=== PATIENT | female | born 1935 | race African-American/Black ===

== ENCOUNTER 2019-08-20 08:21 | Inpatient (IN) ==
[2019-08-20] MEDS ORDERED: SODIUM CHLORIDE 0.9% 1,000 ML IV STA (09:56)
[2019-08-20] MEDS ORDERED: ONDANSETRON 4 MG/2 ML VIAL IV ONE (09:56)
[2019-08-20 10:42] LABS: Bilirubin,Total 0.7 MG/DL (0.2-1.0); Calcium 9.4 MG/DL (8.5-10.1); Total Protein 7.5 G/DL (6.4-8.3)
[2019-08-20 10:44] LABS: Basophils # 0.1 10*3/uL (0.0-0.2); Basophils % 1.1 % (0.0-0.8); Eosinophils % 0.2 % (0.00-10.9); Hematocrit 35.3 VOL% (35.7-47.0); Hemoglobin 11.1 GM/DL (12.0-16.0); Immature Granulocytes % 0.6 %; Immature Granulocytes Absolute 0.05 #; Lymphocytes # 0.3 10*3/uL (1.4-4.0); Lymphocytes % 3.5 % (21.3-54.2); Mean Corpuscular HGB Conc 31.4 GM/DL (32-36); Mean Corpuscular Volume 99.2 FL (87-102); Monocytes % 2.9 % (1.7-12.7); NRBC # 0.03 10*3/uL; Neutrophils % 91.7 % (38.7-73.9); Platelet Count 238 T/CUMM (130-400); Red Blood Count 3.56 MC/CUMM (3.8-5.5); Red Cell Distribution Width 15.7 % (9.3-17.3); White Blood Count 8.3 T/CUMM (4-12)
[2019-08-20 11:10] LABS: Albumin 2.2 G/DL (3.4-5.0)
[2019-08-20 11:41] LABS: Anisocytosis Slight; Band Neutrophils 32 % (0-10); Eosinophils 1 % (0-10); Lymphocytes 3 % (20-55); Macrocytosis 1+; Platelet Estimate Normal; Segmented Neutrophils 61 % (50-85); Total Cells Counted 100
[2019-08-20 11:42] LABS: Poikilocytosis Slight
[2019-08-20 11:50] LABS: Ferritin 1594.1 ng/ml (8-252)
[2019-08-20] MEDS ORDERED: GENTAMICIN 80 MG/2 ML VIAL IM STA (11:52)
[2019-08-20] MEDS ORDERED: VANCOMYCIN INJ 1,000 MG in SODIUM CHLORIDE 0.9% 250 ML IV STA (11:52)
[2019-08-20] MEDS ORDERED: GENTAMICIN INJ 80 MG in SODIUM CHLORIDE 0.9% 100 ML IV STA (11:57)
[2019-08-20] MEDS ORDERED: GENTAMICIN 80 MG/2 ML VIAL ONE (12:00)
[2019-08-20] MEDS ORDERED: KETOROLAC 15 MG/1 ML VIAL IV PRN (12:53)
[2019-08-20] MEDS ORDERED: MORPHINE 4 MG/1 ML VIAL IV PRN ×2 (12:53)
[2019-08-20] MEDS ORDERED: ACETAMINOPHEN 325 MG TABLET PO PRN (12:53)
[2019-08-20] MEDS ORDERED: LEVOFLOXACIN INJ 750 MG in PREMIX 1 EACH IV ONE (13:00)
[2019-08-20] MEDS: metroNIDAZOLE INJ 500 MG in PREMIX 1 EACH IV SCH ×2 (13:29→23:05)
[2019-08-20] MEDS ORDERED: LEVOFLOXACIN INJ 150 ML IV ONE (13:36)
[2019-08-20] MEDS: LACTATED RINGERS 1,000 ML IV SCH (15:47)
[2019-08-20] MEDS: HEPARIN 5,000 UNIT/1 ML VIAL SUBCUT SCH ×2 (16:23→23:09)
[2019-08-20] MEDS ORDERED: amLODIPine 10 MG TABLET PO SCH (21:00)
[2019-08-20] MEDS: SIMVASTATIN 40 MG TABLET PO SCH (23:07)
[2019-08-20] MEDS: PANTOPRAZOLE 40 MG TABLET PO SCH (23:07)
[2019-08-20] MEDS: FERROUS SULFATE 325 MG TABLET PO SCH (23:07)
[2019-08-20] MEDS: carvediloL 12.5 MG TABLET PO SCH (23:07)
[2019-08-21] MEDS: metroNIDAZOLE INJ 500 MG in PREMIX 1 EACH IV SCH ×3 (05:20→21:00)
[2019-08-21 05:41] LABS: Basophils % 0.6 % (0.0-0.8); Eosinophils % 0.4 % (0.00-10.9); Hematocrit 30.5 VOL% (35.7-47.0); Hemoglobin 9.5 GM/DL (12.0-16.0); Immature Granulocytes % 0.6 %; Immature Granulocytes Absolute 0.04 #; Lymphocytes # 0.3 10*3/uL (1.4-4.0); Mean Corpuscular HGB Conc 31.1 GM/DL (32-36); Mean Platelet Volume 11.8 FL (9.6-12.0); Monocytes % 4.8 % (1.7-12.7); NRBC # 0.02 10*3/uL; Neutrophils % 89.6 % (38.7-73.9); Platelet Count 197 T/CUMM (130-400); Red Blood Count 3.08 MC/CUMM (3.8-5.5); Red Cell Distribution Width 15.7 % (9.3-17.3); White Blood Count 7.1 T/CUMM (4-12)
[2019-08-21 06:03] LABS: Band Neutrophils 2 % (0-10); Hypochromasia 1+; Lymphocytes 4 % (20-55); Platelet Estimate Adequate; Segmented Neutrophils 89 % (50-85); Total Cells Counted 100
[2019-08-21 06:05] LABS: Albumin 1.7 G/DL (3.4-5.0); Bilirubin,Total 1.2 MG/DL (0.2-1.0); Calcium 8.6 MG/DL (8.5-10.1); Osmolality,Calculated 299.8 MOS/KG (273-304)
[2019-08-21 06:48] LABS: Ferritin 1387.1 ng/ml (8-252)
[2019-08-21] MEDS ORDERED: PANTOPRAZOLE 40 MG VIAL IV SCH (09:00)
[2019-08-21] MEDS: HEPARIN 5,000 UNIT/1 ML VIAL SUBCUT SCH (09:56)
[2019-08-21] MEDS: PANTOPRAZOLE 40 MG TABLET PO SCH ×2 (09:56→21:00)
[2019-08-21] MEDS: predniSONE 10 MG TABLET PO SCH (09:56)
[2019-08-21] MEDS: FERROUS SULFATE 325 MG TABLET PO SCH ×2 (09:56→17:15)
[2019-08-21] MEDS: LACTATED RINGERS 1,000 ML IV SCH ×2 (09:56→17:52)
[2019-08-21] MEDS: carvediloL 12.5 MG TABLET PO SCH ×2 (09:56→17:15)
[2019-08-21] MEDS: allopurinoL 100 MG TABLET PO SCH (09:56)
[2019-08-21] MEDS: HEPARIN DRIP 25,000 UNITS/500 ML PREMIX IV SCH (16:10)
[2019-08-21] MEDS: SIMVASTATIN 40 MG TABLET PO SCH (21:00)
[2019-08-21] MEDS: ASCORBIC ACID 500 MG TABLET PO SCH (21:00)
[2019-08-22] MEDS: metroNIDAZOLE INJ 500 MG in PREMIX 1 EACH IV SCH ×3 (05:56→22:04)
[2019-08-22 08:53] LABS: Ferritin 1398.7 ng/ml (8-252)
[2019-08-22] MEDS: PANTOPRAZOLE 40 MG TABLET PO SCH ×2 (09:19→21:04)
[2019-08-22] MEDS: FERROUS SULFATE 325 MG TABLET PO SCH ×2 (09:19→17:48)
[2019-08-22] MEDS: carvediloL 12.5 MG TABLET PO SCH ×2 (09:19→17:48)
[2019-08-22] MEDS: ASCORBIC ACID 500 MG TABLET PO SCH ×2 (09:19→21:04)
[2019-08-22] MEDS: allopurinoL 100 MG TABLET PO SCH (09:19)
[2019-08-22] MEDS: LEVOFLOXACIN INJ 500 MG in PREMIX 1 EACH IV SCH (09:19)
[2019-08-22] MEDS: predniSONE 10 MG TABLET PO SCH (09:19)
[2019-08-22 16:16] LABS: Partial Thromboplastin Time 39.5 SECS (23.9-33.8)
[2019-08-22] MEDS ORDERED: EPOETIN ALFA-EPBX 2,000 UNIT/ML VIAL IV PRN (16:32)
[2019-08-22 16:48] LABS: Basophils % 0.2 % (0.0-0.8); Eosinophils % 0.2 % (0.00-10.9); Hematocrit 28.3 VOL% (35.7-47.0); Hemoglobin 8.8 GM/DL (12.0-16.0); Immature Granulocytes % 1.5 %; Immature Granulocytes Absolute 0.13 #; Lymphocytes # 0.3 10*3/uL (1.4-4.0); Lymphocytes % 3.9 % (21.3-54.2); Mean Corpuscular HGB Conc 31.1 GM/DL (32-36); Mean Corpuscular Volume 99.6 FL (87-102); Mean Platelet Volume 11.9 FL (9.6-12.0); Monocytes % 3.3 % (1.7-12.7); NRBC # 0.02 10*3/uL; Neutrophils % 90.9 % (38.7-73.9); Platelet Count 203 T/CUMM (130-400); Red Blood Count 2.84 MC/CUMM (3.8-5.5); Red Cell Distribution Width 15.8 % (9.3-17.3); White Blood Count 8.5 T/CUMM (4-12)
[2019-08-22] MEDS: HEPARIN DRIP 25,000 UNITS/500 ML PREMIX IV SCH ×2 (17:47→23:13)
[2019-08-22 18:10] LABS: Band Neutrophils 3 % (0-10); Lymphocytes 4 % (20-55); Segmented Neutrophils 92 % (50-85); Total Cells Counted 100
[2019-08-22 18:11] LABS: Platelet Estimate Adequate
[2019-08-22] MEDS: SIMVASTATIN 40 MG TABLET PO SCH (21:04)
[2019-08-22] MEDS ORDERED: HEPARIN 5,000 UNIT/1 ML VIAL IV PRN (23:17)
[2019-08-23 03:33] LABS: Ferritin 1149.5 ng/ml (8-252)
[2019-08-23 03:35] LABS: Risk Ratio 2.37; VLDL CHOLESTEROL 11.8 MG/DL
[2019-08-23] MEDS: metroNIDAZOLE INJ 500 MG in PREMIX 1 EACH IV SCH ×3 (05:20→20:50)
[2019-08-23] MEDS: PANTOPRAZOLE 40 MG TABLET PO SCH ×2 (09:03→20:49)
[2019-08-23] MEDS: allopurinoL 100 MG TABLET PO SCH (09:03)
[2019-08-23] MEDS: ASCORBIC ACID 500 MG TABLET PO SCH ×2 (09:03→20:50)
[2019-08-23] MEDS: FERROUS SULFATE 325 MG TABLET PO SCH ×2 (09:03→17:58)
[2019-08-23] MEDS: predniSONE 10 MG TABLET PO SCH (09:03)
[2019-08-23] MEDS: carvediloL 12.5 MG TABLET PO SCH ×2 (09:03→17:58)
[2019-08-23] MEDS: ASPIRIN EC 81 MG TABLET PO SCH (12:54)
[2019-08-23] MEDS: SIMVASTATIN 40 MG TABLET PO SCH (20:49)
[2019-08-23] MEDS: HEPARIN DRIP 25,000 UNITS/500 ML PREMIX IV SCH (22:01)
[2019-08-24] MEDS: metroNIDAZOLE INJ 500 MG in PREMIX 1 EACH IV SCH ×3 (05:03→20:57)
[2019-08-24] MEDS: predniSONE 10 MG TABLET PO SCH (13:25)
[2019-08-24] MEDS: ASCORBIC ACID 500 MG TABLET PO SCH ×2 (13:25→20:57)
[2019-08-24] MEDS: carvediloL 12.5 MG TABLET PO SCH ×2 (13:26→17:41)
[2019-08-24] MEDS: LEVOFLOXACIN INJ 500 MG in PREMIX 1 EACH IV SCH (13:26)
[2019-08-24] MEDS: PANTOPRAZOLE 40 MG TABLET PO SCH ×2 (13:26→20:57)
[2019-08-24] MEDS: FERROUS SULFATE 325 MG TABLET PO SCH ×2 (13:26→17:41)
[2019-08-24] MEDS: allopurinoL 100 MG TABLET PO SCH (13:26)
[2019-08-24] MEDS: ASPIRIN EC 81 MG TABLET PO SCH (13:26)
[2019-08-24] MEDS: SIMVASTATIN 40 MG TABLET PO SCH (20:57)
[2019-08-24] MEDS: HEPARIN DRIP 25,000 UNITS/500 ML PREMIX IV SCH (21:49)
[2019-08-25] MEDS: metroNIDAZOLE INJ 500 MG in PREMIX 1 EACH IV SCH ×3 (05:20→20:44)
[2019-08-25 07:24] LABS: Ferritin 1012.3 ng/ml (8-252)
[2019-08-25 08:14] LABS: Basophils % 0.3 % (0.0-0.8); Eosinophils % 0.1 % (0.00-10.9); Hematocrit 28.4 VOL% (35.7-47.0); Hemoglobin 8.7 GM/DL (12.0-16.0); Immature Granulocytes % 6.3 %; Immature Granulocytes Absolute 0.86 #; Lymphocytes # 1.1 10*3/uL (1.4-4.0); Lymphocytes % 8.3 % (21.3-54.2); Mean Corpuscular HGB Conc 30.6 GM/DL (32-36); Mean Platelet Volume 11.7 FL (9.6-12.0); Monocytes % 3.9 % (1.7-12.7); Neutrophils % 81.1 % (38.7-73.9); Platelet Count 226 T/CUMM (130-400); Red Blood Count 2.84 MC/CUMM (3.8-5.5); Red Cell Distribution Width 15.5 % (9.3-17.3); White Blood Count 13.6 T/CUMM (4-12)
[2019-08-25 08:54] LABS: Calcium 8.5 MG/DL (8.5-10.1); Osmolality,Calculated 276.4 MOS/KG (273-304)
[2019-08-25] MEDS: predniSONE 10 MG TABLET PO SCH (09:00)
[2019-08-25] MEDS: allopurinoL 100 MG TABLET PO SCH (09:00)
[2019-08-25] MEDS: ASCORBIC ACID 500 MG TABLET PO SCH ×2 (09:00→20:45)
[2019-08-25] MEDS: ASPIRIN EC 81 MG TABLET PO SCH (09:00)
[2019-08-25] MEDS: carvediloL 12.5 MG TABLET PO SCH ×2 (09:00→18:08)
[2019-08-25] MEDS: PANTOPRAZOLE 40 MG TABLET PO SCH ×2 (09:00→20:45)
[2019-08-25] MEDS: FERROUS SULFATE 325 MG TABLET PO SCH ×2 (09:01→18:08)
[2019-08-25 13:28] LABS: Lymphocytes 10 % (20-55); Platelet Estimate Normal; Polychromasia Slight; Segmented Neutrophils 87 % (50-85); Total Cells Counted 100
[2019-08-25] MEDS: SIMVASTATIN 40 MG TABLET PO SCH (20:45)
[2019-08-26] MEDS: HEPARIN DRIP 25,000 UNITS/500 ML PREMIX IV SCH ×3 (00:32→21:32)
[2019-08-26] MEDS: metroNIDAZOLE INJ 500 MG in PREMIX 1 EACH IV SCH ×3 (05:02→21:29)
[2019-08-26 07:36] LABS: Basophils % 0.4 % (0.0-0.8); Eosinophils % 0.3 % (0.00-10.9); Hematocrit 30.5 VOL% (35.7-47.0); Hemoglobin 9.6 GM/DL (12.0-16.0); Immature Granulocytes % 6.8 %; Immature Granulocytes Absolute 0.75 #; Lymphocytes % 9.2 % (21.3-54.2); Mean Corpuscular HGB Conc 31.5 GM/DL (32-36); Mean Platelet Volume 11.2 FL (9.6-12.0); Monocytes % 4.8 % (1.7-12.7); NRBC # 0.02 10*3/uL; Neutrophils % 78.5 % (38.7-73.9); Platelet Count 235 T/CUMM (130-400); Red Blood Count 3.08 MC/CUMM (3.8-5.5); Red Cell Distribution Width 15.6 % (9.3-17.3)
[2019-08-26 08:15] LABS: Osmolality,Calculated 281.2 MOS/KG (273-304)
[2019-08-26 08:17] LABS: Band Neutrophils 1 % (0-10); Lymphocytes 10 % (20-55); Platelet Estimate Adequate; Segmented Neutrophils 85 % (50-85); Total Cells Counted 100
[2019-08-26 08:18] LABS: Hypochromasia 1+; Microcytosis Slight; Ovalocytes Slight
[2019-08-26] MEDS: predniSONE 10 MG TABLET PO SCH (09:24)
[2019-08-26] MEDS: FERROUS SULFATE 325 MG TABLET PO SCH ×2 (09:24→16:39)
[2019-08-26] MEDS: carvediloL 12.5 MG TABLET PO SCH ×2 (09:24→16:39)
[2019-08-26] MEDS: ASPIRIN EC 81 MG TABLET PO SCH (09:24)
[2019-08-26] MEDS: ASCORBIC ACID 500 MG TABLET PO SCH ×2 (09:25→21:25)
[2019-08-26] MEDS: allopurinoL 100 MG TABLET PO SCH (09:25)
[2019-08-26] MEDS: PANTOPRAZOLE 40 MG TABLET PO SCH ×2 (09:25→21:25)
[2019-08-26] MEDS: LEVOFLOXACIN INJ 500 MG in PREMIX 1 EACH IV SCH (09:29)
[2019-08-26] MEDS: SIMVASTATIN 40 MG TABLET PO SCH (21:25)
[2019-08-27 00:23] LABS: Basophils % 0.2 % (0.0-0.8); Eosinophils % 0.1 % (0.00-10.9); Hemoglobin 9.8 GM/DL (12.0-16.0); Immature Granulocytes % 6.1 %; Immature Granulocytes Absolute 0.79 #; Lymphocytes % 7.4 % (21.3-54.2); Mean Corpuscular HGB Conc 31.6 GM/DL (32-36); Mean Corpuscular Volume 97.2 FL (87-102); Mean Platelet Volume 10.6 FL (9.6-12.0); Monocytes % 4.8 % (1.7-12.7); NRBC # 0.03 10*3/uL; Neutrophils % 81.4 % (38.7-73.9); Platelet Count 239 T/CUMM (130-400); Red Blood Count 3.19 MC/CUMM (3.8-5.5); Red Cell Distribution Width 15.8 % (9.3-17.3)
[2019-08-27 00:44] LABS: Albumin 1.8 G/DL (3.4-5.0); Bilirubin,Total 0.7 MG/DL (0.2-1.0); Calcium 9.2 MG/DL (8.5-10.1); Osmolality,Calculated 281.5 MOS/KG (273-304); Total Protein 6.1 G/DL (6.4-8.3)
[2019-08-27 00:57] LABS: Band Neutrophils 2 % (0-10); Lymphocytes 8 % (20-55); Segmented Neutrophils 81 % (50-85); Total Cells Counted 100
[2019-08-27 00:58] LABS: Acanthocytes Few; Anisocytosis 1+; Platelet Estimate Normal
[2019-08-27] MEDS: metroNIDAZOLE INJ 500 MG in PREMIX 1 EACH IV SCH ×3 (05:35→21:19)
[2019-08-27 07:59] LABS: Basophils % 0.2 % (0.0-0.8); Eosinophils % 0.2 % (0.00-10.9); Hematocrit 30.4 VOL% (35.7-47.0); Hemoglobin 9.6 GM/DL (12.0-16.0); Immature Granulocytes % 7.3 %; Immature Granulocytes Absolute 0.91 #; Mean Corpuscular HGB Conc 31.6 GM/DL (32-36); Mean Corpuscular Volume 97.4 FL (87-102); Mean Platelet Volume 11.2 FL (9.6-12.0); Monocytes % 4.7 % (1.7-12.7); NRBC # 0.03 10*3/uL; Neutrophils % 79.6 % (38.7-73.9); Platelet Count 258 T/CUMM (130-400); Red Blood Count 3.12 MC/CUMM (3.8-5.5); White Blood Count 12.4 T/CUMM (4-12)
[2019-08-27 08:19] LABS: Calcium 8.5 MG/DL (8.5-10.1); Osmolality,Calculated 283.2 MOS/KG (273-304)
[2019-08-27 08:26] LABS: Eosinophils 2 % (0-10); Hypochromasia 1+; Lymphocytes 9 % (20-55); Microcytosis Slight; Platelet Estimate Adequate; Segmented Neutrophils 86 % (50-85); Total Cells Counted 100
[2019-08-27] MEDS: carvediloL 12.5 MG TABLET PO SCH ×2 (09:46→16:17)
[2019-08-27] MEDS: ASCORBIC ACID 500 MG TABLET PO SCH ×2 (09:46→21:12)
[2019-08-27] MEDS: PANTOPRAZOLE 40 MG TABLET PO SCH ×2 (09:46→21:12)
[2019-08-27] MEDS: FERROUS SULFATE 325 MG TABLET PO SCH ×2 (09:46→16:17)
[2019-08-27] MEDS: allopurinoL 100 MG TABLET PO SCH (16:17)
[2019-08-27] MEDS: predniSONE 10 MG TABLET PO SCH (16:17)
[2019-08-27] MEDS: ASPIRIN EC 81 MG TABLET PO SCH (16:17)
[2019-08-27] MEDS: SIMVASTATIN 40 MG TABLET PO SCH (21:12)
[2019-08-28] MEDS: metroNIDAZOLE INJ 500 MG in PREMIX 1 EACH IV SCH ×3 (04:37→21:00)
[2019-08-28] MEDS ORDERED: DIAZEPAM 5 MG TABLET PO ONE (08:59)
[2019-08-28] MEDS ORDERED: MIDAZOLAM 2 MG/2 ML VIAL IV ONE (09:00)
[2019-08-28] MEDS ORDERED: fentaNYL 100 MCG/2 ML VIAL IV ONE (09:00)
[2019-08-28] MEDS ORDERED: MIDAZOLAM 2 MG/2 ML VIAL ONE (09:24)
[2019-08-28] MEDS ORDERED: fentaNYL 100 MCG/2 ML VIAL ONE (09:24)
[2019-08-28] MEDS: ONDANSETRON 4 MG/2 ML VIAL IV PRN ×2 (10:38→16:19)
[2019-08-28] MEDS ORDERED: ONDANSETRON 4 MG/2 ML VIAL ONE (10:38)
[2019-08-28] MEDS: allopurinoL 100 MG TABLET PO SCH (12:20)
[2019-08-28] MEDS: carvediloL 12.5 MG TABLET PO SCH ×2 (12:20→16:19)
[2019-08-28] MEDS: PANTOPRAZOLE 40 MG TABLET PO SCH ×2 (12:21→20:59)
[2019-08-28] MEDS: FERROUS SULFATE 325 MG TABLET PO SCH ×2 (12:21→16:19)
[2019-08-28] MEDS: ASPIRIN EC 81 MG TABLET PO SCH (12:21)
[2019-08-28] MEDS: predniSONE 10 MG TABLET PO SCH (12:21)
[2019-08-28] MEDS: ASCORBIC ACID 500 MG TABLET PO SCH ×2 (12:21→20:59)
[2019-08-28] MEDS: LEVOFLOXACIN INJ 500 MG in PREMIX 1 EACH IV SCH (12:21)
[2019-08-28] MEDS: SODIUM CHLORIDE 0.45% 1,000 ML IV SCH (20:57)
[2019-08-28] MEDS: SIMVASTATIN 40 MG TABLET PO SCH (20:59)
[2019-08-29] MEDS: metroNIDAZOLE INJ 500 MG in PREMIX 1 EACH IV SCH ×3 (05:48→20:51)
[2019-08-29 06:33] LABS: Basophils % 0.3 % (0.0-0.8); Eosinophils % 0.1 % (0.00-10.9); Hematocrit 29.3 VOL% (35.7-47.0); Hemoglobin 9.2 GM/DL (12.0-16.0); Immature Granulocytes % 2.9 %; Immature Granulocytes Absolute 0.46 #; Lymphocytes # 0.9 10*3/uL (1.4-4.0); Lymphocytes % 5.7 % (21.3-54.2); Mean Corpuscular HGB Conc 31.4 GM/DL (32-36); Mean Platelet Volume 11.9 FL (9.6-12.0); Monocytes % 5.5 % (1.7-12.7); Neutrophils % 85.5 % (38.7-73.9); Platelet Count 190 T/CUMM (130-400); Red Blood Count 2.96 MC/CUMM (3.8-5.5); Red Cell Distribution Width 16.2 % (9.3-17.3); White Blood Count 15.9 T/CUMM (4-12)
[2019-08-29 06:51] LABS: Calcium 8.8 MG/DL (8.5-10.1); Osmolality,Calculated 281.1 MOS/KG (273-304)
[2019-08-29] MEDS: ASCORBIC ACID 500 MG TABLET PO SCH ×2 (08:43→20:51)
[2019-08-29] MEDS: ASPIRIN EC 81 MG TABLET PO SCH (08:46)
[2019-08-29] MEDS: predniSONE 10 MG TABLET PO SCH (08:46)
[2019-08-29] MEDS: carvediloL 12.5 MG TABLET PO SCH ×2 (08:47→19:05)
[2019-08-29] MEDS: FERROUS SULFATE 325 MG TABLET PO SCH ×2 (08:47→19:05)
[2019-08-29] MEDS: PANTOPRAZOLE 40 MG TABLET PO SCH ×2 (08:47→20:51)
[2019-08-29] MEDS: allopurinoL 100 MG TABLET PO SCH (08:47)
[2019-08-29] MEDS ORDERED: ENOXAPARIN 100 MG/ML SYRINGE SUBCUT SCH (11:00)
[2019-08-29] MEDS ORDERED: HEPARIN DRIP 25,000 UNITS/500 ML PREMIX IV SCH (11:00)
[2019-08-29] MEDS: SIMVASTATIN 40 MG TABLET PO SCH (20:51)
[2019-08-29] MEDS: SODIUM CHLORIDE 0.45% 1,000 ML IV SCH (21:17)
[2019-08-30] MEDS: metroNIDAZOLE INJ 500 MG in PREMIX 1 EACH IV SCH ×2 (05:05→12:44)
[2019-08-30 06:01] LABS: Basophils % 0.2 % (0.0-0.8); Eosinophils % 0.1 % (0.00-10.9); Hematocrit 25.9 VOL% (35.7-47.0); Hemoglobin 8.3 GM/DL (12.0-16.0); Immature Granulocytes % 2.9 %; Immature Granulocytes Absolute 0.37 #; Lymphocytes # 0.8 10*3/uL (1.4-4.0); Lymphocytes % 6.5 % (21.3-54.2); Mean Platelet Volume 11.6 FL (9.6-12.0); Monocytes % 5.3 % (1.7-12.7); Platelet Count 229 T/CUMM (130-400); Red Blood Count 2.67 MC/CUMM (3.8-5.5); Red Cell Distribution Width 15.9 % (9.3-17.3); White Blood Count 12.9 T/CUMM (4-12)
[2019-08-30 06:16] LABS: Calcium 8.4 MG/DL (8.5-10.1)
[2019-08-30] MEDS ORDERED: POTASSIUM CHLORIDE 20 MEQ TABLET PO ONE (09:00)
[2019-08-30] MEDS ORDERED: APIXABAN 5 MG TABLET PO SCH (09:30)
[2019-08-30] MEDS: allopurinoL 100 MG TABLET PO SCH (09:43)
[2019-08-30] MEDS: FERROUS SULFATE 325 MG TABLET PO SCH (09:43)
[2019-08-30] MEDS: carvediloL 12.5 MG TABLET PO SCH (09:43)
[2019-08-30] MEDS: predniSONE 10 MG TABLET PO SCH (09:43)
[2019-08-30] MEDS: ASCORBIC ACID 500 MG TABLET PO SCH (09:43)
[2019-08-30] MEDS: PANTOPRAZOLE 40 MG TABLET PO SCH (09:43)
[2019-08-30] MEDS: ASPIRIN EC 81 MG TABLET PO SCH (09:43)
[2019-08-30] MEDS: SODIUM CHLORIDE 0.45% 1,000 ML IV SCH (10:32)
[2019-08-30 11:52] VITALS: BP 111/57
== END 2019-08-30 15:20 | disposition home health service (06) | DRG 371 ==
LOC: N.ED 08:21 → SUPCPDRO 15:19 → SUATTDRO 15:19 → N.EDINP 15:19 → N.2W 21:29 → N.TELEN 08-22 20:07
PROVIDERS: ADMIT Internal Medicine; ATTEND Internal Medicine Geriatric Medicine

== ENCOUNTER 2019-08-31 17:05 | Inpatient (IN) ==
[2019-08-31] MEDS ORDERED: SODIUM CHLORIDE 0.9% 500 ML IV STA (17:29)
[2019-08-31 18:28] LABS: Basophils % 0.2 % (0.0-0.8); Eosinophils % 0.1 % (0.00-10.9); Hematocrit 28.9 VOL% (35.7-47.0); Hemoglobin 8.9 GM/DL (12.0-16.0); Immature Granulocytes % 4.5 %; Immature Granulocytes Absolute 0.64 #; Lymphocytes # 0.9 10*3/uL (1.4-4.0); Lymphocytes % 6.3 % (21.3-54.2); Mean Corpuscular HGB Conc 30.8 GM/DL (32-36); Mean Corpuscular Volume 99.3 FL (87-102); Mean Platelet Volume 11.2 FL (9.6-12.0); Monocytes % 8.7 % (1.7-12.7); Neutrophils % 80.2 % (38.7-73.9); Platelet Count 305 T/CUMM (130-400); Red Blood Count 2.91 MC/CUMM (3.8-5.5); Red Cell Distribution Width 16.3 % (9.3-17.3); White Blood Count 14.1 T/CUMM (4-12)
[2019-08-31] MEDS ORDERED: DILTIAZEM 50 MG/10 ML VIAL IV STA (18:29)
[2019-08-31 18:44] LABS: Alanine Aminotransferase 12 U/L (13-56); Albumin 2.2 G/DL (3.4-5.0); Alkaline Phosphatase 66 U/L (45-117); Aspartate Amino Transferase 18 U/L (0-37); Blood Urea Nitrogen 14 MG/DL (7-18); Calcium 8.5 MG/DL (8.5-10.1); Estimated Glom Filtration Rate 33 ML/MIN; Glucose 145 MG/DL (74-106); Osmolality,Calculated 271.2 MOS/KG (273-304)
[2019-08-31 18:45] LABS: Troponin I 0.582 NG/ML (0.00-0.045)
[2019-08-31 19:04] LABS: Lymphocytes 6 % (20-55); Segmented Neutrophils 87 % (50-85); Total Cells Counted 100
[2019-08-31 19:05] LABS: Anisocytosis 2+; Hypochromasia 1+; Microcytosis 2+; Platelet Estimate Normal; Stomatocytes Slight
[2019-08-31] MEDS ORDERED: LEVOFLOXACIN INJ 500 MG in PREMIX 1 EACH IV STA (19:06)
[2019-08-31] MEDS ORDERED: ASPIRIN 325 MG TABLET PO STA (19:06)
[2019-08-31 19:14] LABS: INR 1.2
[2019-08-31] MEDS ORDERED: MORPHINE 4 MG/1 ML VIAL IV ONE (19:36)
[2019-08-31] MEDS ORDERED: MORPHINE 4 MG/1 ML VIAL IV PRN (20:09)
[2019-08-31] MEDS ORDERED: GLUCAGON 1 MG VIAL IM PRN (20:09)
[2019-08-31] MEDS ORDERED: DEXTROSE 50% 25 GM/50 ML VIAL IV PRN (20:09)
[2019-08-31] MEDS ORDERED: ONDANSETRON 4 MG/2 ML VIAL IV PRN (20:09)
[2019-08-31] MEDS ORDERED: ENOXAPARIN 40 MG/0.4 ML SYRINGE SUBCUT SCH (20:30)
[2019-08-31] MEDS ORDERED: SIMVASTATIN 40 MG TABLET PO SCH (21:00)
[2019-08-31] MEDS ORDERED: cefTRIAXone 2,000 MG in SYRINGE 1 EACH IV SCH (21:00)
[2019-08-31] MEDS: FERROUS SULFATE 325 MG TABLET PO SCH (22:35)
[2019-08-31] MEDS: APIXABAN 5 MG TABLET PO SCH (22:35)
[2019-08-31] MEDS: carvediloL 12.5 MG TABLET PO SCH (22:46)
[2019-09-01 07:37] LABS: Basophils % 0.4 % (0.0-0.8); Eosinophils % 0.2 % (0.00-10.9); Hemoglobin 7.4 GM/DL (12.0-16.0); Immature Granulocytes % 4.6 %; Lymphocytes # 0.8 10*3/uL (1.4-4.0); Lymphocytes % 7.2 % (21.3-54.2); Mean Corpuscular HGB Conc 30.8 GM/DL (32-36); Mean Corpuscular Volume 97.6 FL (87-102); Mean Platelet Volume 11.2 FL (9.6-12.0); Monocytes % 9.2 % (1.7-12.7); Neutrophils % 78.4 % (38.7-73.9); Platelet Count 230 T/CUMM (130-400); Red Blood Count 2.46 MC/CUMM (3.8-5.5); Red Cell Distribution Width 15.9 % (9.3-17.3); White Blood Count 10.8 T/CUMM (4-12)
[2019-09-01 08:12] LABS: Hypochromasia 1+; Microcytosis Slight
[2019-09-01] MEDS ORDERED: PANTOPRAZOLE 40 MG TABLET PO SCH (09:00)
[2019-09-01] MEDS ORDERED: predniSONE 10 MG TABLET PO SCH (09:00)
[2019-09-01] MEDS ORDERED: ASPIRIN EC 81 MG TABLET PO SCH (09:00)
[2019-09-01] MEDS ORDERED: GLUCAGON 1 MG VIAL IM PRN (09:10)
[2019-09-01] MEDS ORDERED: DEXTROSE 50% 25 GM/50 ML VIAL IV PRN (09:10)
[2019-09-01] MEDS: FERROUS SULFATE 325 MG TABLET PO SCH (09:21)
[2019-09-01] MEDS: APIXABAN 5 MG TABLET PO SCH (09:22)
[2019-09-01] MEDS: carvediloL 12.5 MG TABLET PO SCH (09:22)
[2019-09-01] MEDS ORDERED: metroNIDAZOLE INJ 750 MG in PREMIX 1 EACH IV SCH (10:00)
[2019-09-01] MEDS ORDERED: SODIUM CHLORIDE 0.9% 1,000 ML IV SCH ×2 (10:00)
[2019-09-01] MEDS ORDERED: POTASSIUM CHLORIDE 20 MEQ TABLET PO PRN (11:42)
[2019-09-01] MEDS ORDERED: MAGNESIUM SULF RIDER 4 GM in PREMIX 1 EACH IV PRN (11:42)
[2019-09-01] MEDS ORDERED: MAGNESIUM SULF RIDER 2 GM in PREMIX 1 EACH IV PRN (11:42)
[2019-09-01 13:07] VITALS: BP 110/50
== END 2019-09-01 15:40 | disposition home or self-care (01) | DRG 308 ==
LOC: EDBD → EDUNIT# → N.ED 17:05 → N.EDINP 20:09 → N.TELEN 20:45
PROVIDERS: ADMIT Family Medicine; ATTEND Family Medicine

== ENCOUNTER 2019-09-12 11:23 | Inpatient (IN) ==
[2019-09-12 12:47] LABS: Basophils % 0.2 % (0.0-0.8); Eosinophils # 0.1 10*3/uL (0.0-0.87); Eosinophils % 0.4 % (0.00-10.9); Hematocrit 21.2 VOL% (35.7-47.0); Immature Granulocytes % 0.9 %; Immature Granulocytes Absolute 0.13 #; Lymphocytes # 1.6 10*3/uL (1.4-4.0); Lymphocytes % 11.6 % (21.3-54.2); Mean Corpuscular HGB Conc 30.2 GM/DL (32-36); Mean Platelet Volume 11.3 FL (9.6-12.0); Monocytes % 7.5 % (1.7-12.7); Neutrophils % 79.4 % (38.7-73.9); Platelet Count 228 T/CUMM (130-400); Red Cell Distribution Width 16.3 % (9.3-17.3)
[2019-09-12 12:50] LABS: Hemoglobin 6.4 GM/DL (12.0-16.0)
[2019-09-12 13:09] LABS: Urine Color Yellow (Yellow)
[2019-09-12 13:10] LABS: Apearance,Urine Clear (Clear)
[2019-09-12 13:11] LABS: Glucose,Urine (UA) Negative (Negative); Protein,Urine 2+ MG/DL; Urine Specific Gravity 1.005 (1.001-1.035)
[2019-09-12 13:12] LABS: Bilirubin,Urine Negative (Negative); Blood, Urine Negative (Negative); Ketones,Urine Negative (Negative); Nitrite,Urine Negative (Negative); RBC,Urine 0-3 /HPF (0-4); Squamous Epithelial Cell,Urine Few /HPF (0-10); Urine Urobilinogen < 2.0 EU/DL (0.2-1.0); WBC,Urine 0-5 /HPF (0-6)
[2019-09-12 13:13] LABS: Bacteria,Urine None Seen /HPF (Few)
[2019-09-12 13:13] LABS: Alanine Aminotransferase 25 U/L (13-56); Albumin 2.3 G/DL (3.4-5.0); Alkaline Phosphatase 89 U/L (45-117); Aspartate Amino Transferase 50 U/L (0-37); Blood Urea Nitrogen 10 MG/DL (7-18); Calcium 8.5 MG/DL (8.5-10.1); Estimated Glom Filtration Rate 45 ML/MIN; Glucose 149 MG/DL (74-106); Osmolality,Calculated 282.3 MOS/KG (273-304); Total Protein 6.2 G/DL (6.4-8.3)
[2019-09-12 13:14] LABS: Troponin I 0.109 NG/ML (0.00-0.045)
[2019-09-12] MEDS ORDERED: cefTRIAXone 1,000 MG in SODIUM CHLORIDE 0.9% 100 ML IV STA (14:07)
[2019-09-12] MEDS ORDERED: DOCUSATE SODIUM 100 MG CAPSULE PO PRN (14:35)
[2019-09-12] MEDS ORDERED: DEXTROSE 10% 250 ML BAG IV PRN (14:35)
[2019-09-12] MEDS ORDERED: ACETAMINOPHEN 325 MG TABLET PO PRN (14:35)
[2019-09-12] MEDS ORDERED: GLUCAGON 1 MG VIAL IM PRN (14:35)
[2019-09-12] MEDS ORDERED: ONDANSETRON 4 MG/2 ML VIAL IV PRN (14:35)
[2019-09-12] MEDS ORDERED: SODIUM CHLORIDE 0.9% 1,000 ML IV PRN ×2 (15:19→20:09)
[2019-09-12 15:25] LABS: Thyroid Stimulating Hormone 10.8 uIU/ml (0.358-3.74)
[2019-09-12 16:25] LABS: % Iron Saturation 98.3 % (18-50); Ferritin 1293.2 ng/ml (8-252)
[2019-09-12] MEDS: metroNIDAZOLE INJ 750 MG in PREMIX 1 EACH IV SCH (17:57)
[2019-09-12] MEDS: SODIUM CHLORIDE 0.9% 1,000 ML IV SCH (17:57)
[2019-09-12] MEDS: POTASSIUM CHLORIDE 20 MEQ TABLET PO PRN ×3 (17:58→22:02)
[2019-09-13] MEDS: PANTOPRAZOLE 40 MG VIAL IV SCH ×3 (01:05→21:23)
[2019-09-13] MEDS: metroNIDAZOLE INJ 750 MG in PREMIX 1 EACH IV SCH ×3 (01:07→17:33)
[2019-09-13] MEDS: SODIUM CHLORIDE 0.9% 1,000 ML IV SCH ×2 (01:08→17:44)
[2019-09-13 02:50] LABS: Basophils % 0.3 % (0.0-0.8); Eosinophils # 0.1 10*3/uL (0.0-0.87); Eosinophils % 0.5 % (0.00-10.9); Hematocrit 26.4 VOL% (35.7-47.0); Immature Granulocytes % 1.4 %; Immature Granulocytes Absolute 0.14 #; Lymphocytes # 1.1 10*3/uL (1.4-4.0); Lymphocytes % 11.5 % (21.3-54.2); Mean Corpuscular HGB Conc 30.7 GM/DL (32-36); Mean Platelet Volume 11.6 FL (9.6-12.0); Monocytes % 8.9 % (1.7-12.7); Neutrophils % 77.4 % (38.7-73.9); Platelet Count 168 T/CUMM (130-400); Red Blood Count 2.75 MC/CUMM (3.8-5.5); Red Cell Distribution Width 17.2 % (9.3-17.3); White Blood Count 9.8 T/CUMM (4-12)
[2019-09-13 02:58] LABS: Calcium 8.3 MG/DL (8.5-10.1)
[2019-09-13 03:14] LABS: Hemoglobin 8.1 GM/DL (12.0-16.0)
[2019-09-13] MEDS: POTASSIUM CHLORIDE 20 MEQ TABLET PO PRN (05:45)
[2019-09-13] MEDS ORDERED: PANTOPRAZOLE 40 MG TABLET PO SCH (09:00)
[2019-09-13] MEDS: POLYETHYLENE GLYCOL POWDER 17 GM PACK PO SCH (12:28)
[2019-09-13] MEDS ORDERED: cefTRIAXone 1,000 MG VIAL ONE (14:16)
[2019-09-13] MEDS ORDERED: fentaNYL 100 MCG/2 ML VIAL ONE (15:48)
[2019-09-13] MEDS ORDERED: ONDANSETRON 4 MG/2 ML VIAL ONE (15:48)
[2019-09-13] MEDS ORDERED: SEVOFLURANE 1 UNIT/15 MINUTE INH ONE (15:48)
[2019-09-13] MEDS ORDERED: PHENYLEPHRINE DRIP 20 MG/250 ML PREMIX IV ONE (15:48)
[2019-09-13] MEDS ORDERED: GLYCOPYRROLATE 0.4 MG/2 ML VIAL ONE ×2 (15:48→15:49)
[2019-09-13] MEDS ORDERED: LIDOCAINE 2% 5 ML VIAL ONE (15:48)
[2019-09-13] MEDS ORDERED: SODIUM CHLORIDE 0.9% 1,000 ML IV ONE (15:49)
[2019-09-13] MEDS ORDERED: ETOMIDATE 40 MG/20 ML VIAL IV ONE (15:49)
[2019-09-13] MEDS ORDERED: SUCCINYLCHOLINE 200 MG/10 ML VIAL ONE (15:49)
[2019-09-13] MEDS ORDERED: NEOSTIGMINE 10 MG/10 ML VIAL ONE (15:49)
[2019-09-13] MEDS ORDERED: ROCURONIUM 100 MG/10 ML VIAL IV ONE (15:49)
[2019-09-13] MEDS ORDERED: PHENYLEPHRINE 1 MG/10 ML SYRINGE IV ONE (15:49)
[2019-09-13] MEDS: HYDROmorphone 2 MG/1 ML VIAL IV PRN ×2 (15:55→16:15)
[2019-09-13] MEDS ORDERED: ONDANSETRON 4 MG/2 ML VIAL IV PRN (15:56)
[2019-09-13 16:19] LABS: Hematocrit 26.3 VOL% (35.7-47.0); Hemoglobin 8.2 GM/DL (12.0-16.0)
[2019-09-13] MEDS: cefTRIAXone 1,000 MG in SYRINGE 1 EACH IV SCH (17:44)
[2019-09-13 23:36] LABS: Hematocrit 26.5 VOL% (35.7-47.0); Hemoglobin 8.1 GM/DL (12.0-16.0)
[2019-09-14] MEDS: metroNIDAZOLE INJ 750 MG in PREMIX 1 EACH IV SCH ×4 (00:11→23:32)
[2019-09-14] MEDS: MORPHINE 4 MG/1 ML VIAL IV PRN ×3 (00:11→12:07)
[2019-09-14 04:37] LABS: Basophils % 0.2 % (0.0-0.8); Eosinophils % 0.1 % (0.00-10.9); Hemoglobin 8.5 GM/DL (12.0-16.0); Immature Granulocytes Absolute 0.17 #; Lymphocytes # 1.1 10*3/uL (1.4-4.0); Lymphocytes % 6.7 % (21.3-54.2); Mean Corpuscular HGB Conc 30.4 GM/DL (32-36); Mean Corpuscular Volume 97.2 FL (87-102); Mean Platelet Volume 11.6 FL (9.6-12.0); Monocytes % 6.2 % (1.7-12.7); Neutrophils % 85.8 % (38.7-73.9); Platelet Count 160 T/CUMM (130-400); Red Blood Count 2.88 MC/CUMM (3.8-5.5); Red Cell Distribution Width 17.2 % (9.3-17.3); White Blood Count 16.4 T/CUMM (4-12)
[2019-09-14 04:54] LABS: Calcium 8.3 MG/DL (8.5-10.1); Osmolality,Calculated 283.4 MOS/KG (273-304)
[2019-09-14] MEDS: LEVOTHYROXINE 75 MCG TABLET PO SCH (05:51)
[2019-09-14] MEDS: POLYETHYLENE GLYCOL POWDER 17 GM PACK PO SCH (08:34)
[2019-09-14] MEDS: PANTOPRAZOLE 40 MG VIAL IV SCH ×2 (08:34→20:33)
[2019-09-14] MEDS ORDERED: DIGOXIN 0.5 MG/2 ML AMP IV ONE (10:03)
[2019-09-14] MEDS: cefTRIAXone 1,000 MG in SYRINGE 1 EACH IV SCH (16:24)
[2019-09-14] MEDS: SODIUM CHLORIDE 0.9% 1,000 ML IV SCH ×2 (16:24→19:57)
[2019-09-15 03:14] LABS: Osmolality,Calculated 277.5 MOS/KG (273-304)
[2019-09-15 03:18] LABS: Basophils % 0.3 % (0.0-0.8); Eosinophils # 0.1 10*3/uL (0.0-0.87); Eosinophils % 1.1 % (0.00-10.9); Hematocrit 22.9 VOL% (35.7-47.0); Immature Granulocytes % 1.2 %; Immature Granulocytes Absolute 0.14 #; Lymphocytes % 8.7 % (21.3-54.2); Mean Corpuscular HGB Conc 30.6 GM/DL (32-36); Mean Corpuscular Volume 98.3 FL (87-102); Mean Platelet Volume 11.9 FL (9.6-12.0); Monocytes % 7.8 % (1.7-12.7); Neutrophils % 80.9 % (38.7-73.9); Platelet Count 139 T/CUMM (130-400); Red Blood Count 2.33 MC/CUMM (3.8-5.5); White Blood Count 11.8 T/CUMM (4-12)
[2019-09-15 05:03] LABS: Anisocytosis 1+; Hypochromasia 1+; Microcytosis 1+
[2019-09-15 05:04] LABS: Platelet Estimate Adequate
[2019-09-15] MEDS ORDERED: SODIUM CHLORIDE 0.9% 1,000 ML IV PRN (05:32)
[2019-09-15] MEDS: MORPHINE 4 MG/1 ML VIAL IV PRN (05:55)
[2019-09-15] MEDS: LEVOTHYROXINE 75 MCG TABLET PO SCH (06:41)
[2019-09-15] MEDS: metroNIDAZOLE INJ 750 MG in PREMIX 1 EACH IV SCH ×2 (08:05→17:30)
[2019-09-15] MEDS: POLYETHYLENE GLYCOL POWDER 17 GM PACK PO SCH (08:06)
[2019-09-15] MEDS: PANTOPRAZOLE 40 MG VIAL IV SCH ×2 (08:06→21:40)
[2019-09-15] MEDS: POTASSIUM CHLORIDE 20 MEQ TABLET PO PRN ×3 (09:56→14:26)
[2019-09-15] MEDS: cefTRIAXone 1,000 MG in SYRINGE 1 EACH IV SCH (14:27)
[2019-09-15 15:53] LABS: Hematocrit 29.2 VOL% (35.7-47.0)
[2019-09-15 15:54] LABS: Hemoglobin 8.9 GM/DL (12.0-16.0)
[2019-09-16] MEDS: MORPHINE 4 MG/1 ML VIAL IV PRN ×2 (01:43→21:36)
[2019-09-16] MEDS: metroNIDAZOLE INJ 750 MG in PREMIX 1 EACH IV SCH ×3 (02:02→17:19)
[2019-09-16] MEDS: SODIUM CHLORIDE 0.9% 1,000 ML IV SCH (03:05)
[2019-09-16] MEDS: LEVOTHYROXINE 75 MCG TABLET PO SCH (05:55)
[2019-09-16 06:58] LABS: Basophils % 0.4 % (0.0-0.8); Eosinophils # 0.1 10*3/uL (0.0-0.87); Eosinophils % 0.9 % (0.00-10.9); Hematocrit 32.8 VOL% (35.7-47.0); Hemoglobin 9.9 GM/DL (12.0-16.0); Immature Granulocytes % 1.3 %; Immature Granulocytes Absolute 0.15 #; Lymphocytes # 1.4 10*3/uL (1.4-4.0); Lymphocytes % 12.2 % (21.3-54.2); Mean Corpuscular HGB Conc 30.2 GM/DL (32-36); Mean Corpuscular Volume 94.8 FL (87-102); Mean Platelet Volume 11.7 FL (9.6-12.0); Monocytes % 8.9 % (1.7-12.7); Neutrophils % 76.3 % (38.7-73.9); Platelet Count 160 T/CUMM (130-400); Red Blood Count 3.46 MC/CUMM (3.8-5.5); Red Cell Distribution Width 19.2 % (9.3-17.3); White Blood Count 11.3 T/CUMM (4-12)
[2019-09-16 07:27] LABS: Calcium 8.6 MG/DL (8.5-10.1); Osmolality,Calculated 280.4 MOS/KG (273-304)
[2019-09-16] MEDS: POLYETHYLENE GLYCOL POWDER 17 GM PACK PO SCH (08:17)
[2019-09-16] MEDS: PANTOPRAZOLE 40 MG VIAL IV SCH ×2 (08:29→21:44)
[2019-09-16] MEDS ORDERED: LIDOCAINE 1%/EPI INJ 20 ML VIAL ONE (09:09)
[2019-09-16] MEDS ORDERED: BUPIVACAINE MPF 0.25% 30 ML VIAL ONE (09:09)
[2019-09-16] MEDS ORDERED: fentaNYL 100 MCG/2 ML VIAL ONE (09:48)
[2019-09-16] MEDS ORDERED: LIDOCAINE 2% 5 ML VIAL ONE (09:48)
[2019-09-16] MEDS ORDERED: ONDANSETRON 4 MG/2 ML VIAL ONE (09:48)
[2019-09-16] MEDS ORDERED: propofoL 200 MG/20 ML VIAL IV ONE (09:48)
[2019-09-16] MEDS ORDERED: PHENYLEPHRINE 1 MG/10 ML SYRINGE IV ONE (09:49)
[2019-09-16] MEDS ORDERED: EPOETIN ALFA-EPBX 2,000 UNIT/ML VIAL IV PRN (14:00)
[2019-09-16] MEDS: cefTRIAXone 1,000 MG in SYRINGE 1 EACH IV SCH (15:50)
[2019-09-16] MEDS ORDERED: SIMVASTATIN 40 MG TABLET PO SCH (21:00)
[2019-09-16] MEDS: carvediloL 12.5 MG TABLET PO SCH (21:44)
[2019-09-17] MEDS: SODIUM CHLORIDE 0.9% 1,000 ML IV SCH (01:41)
[2019-09-17] MEDS: metroNIDAZOLE INJ 750 MG in PREMIX 1 EACH IV SCH ×2 (02:10→13:18)
[2019-09-17] MEDS: LEVOTHYROXINE 75 MCG TABLET PO SCH (06:31)
[2019-09-17 07:00] LABS: Basophils # 0.1 10*3/uL (0.0-0.2); Basophils % 0.7 % (0.0-0.8); Eosinophils # 0.1 10*3/uL (0.0-0.87); Eosinophils % 0.7 % (0.00-10.9); Hematocrit 32.8 VOL% (35.7-47.0); Hemoglobin 9.7 GM/DL (12.0-16.0); Immature Granulocytes % 1.4 %; Immature Granulocytes Absolute 0.13 #; Lymphocytes # 1.5 10*3/uL (1.4-4.0); Mean Corpuscular HGB Conc 29.6 GM/DL (32-36); Mean Corpuscular Volume 96.8 FL (87-102); Mean Platelet Volume 11.4 FL (9.6-12.0); Monocytes % 10.8 % (1.7-12.7); Neutrophils % 70.4 % (38.7-73.9); Platelet Count 168 T/CUMM (130-400); Red Blood Count 3.39 MC/CUMM (3.8-5.5); Red Cell Distribution Width 18.6 % (9.3-17.3)
[2019-09-17 07:29] LABS: Calcium 8.2 MG/DL (8.5-10.1); Osmolality,Calculated 284.1 MOS/KG (273-304)
[2019-09-17] MEDS: carvediloL 12.5 MG TABLET PO SCH (13:18)
[2019-09-17] MEDS: PANTOPRAZOLE 40 MG VIAL IV SCH (13:19)
[2019-09-17] MEDS: POLYETHYLENE GLYCOL POWDER 17 GM PACK PO SCH (13:19)
[2019-09-17] MEDS: cefTRIAXone 1,000 MG in SYRINGE 1 EACH IV SCH (14:52)
[2019-09-17 16:23] VITALS: BP 108/57
== END 2019-09-17 18:22 | DRG 329 ==
LOC: N.ED 11:23 → SUATTDRO 14:33 → N.EDINP 14:33 → N.TELES 18:00 → N.ICU 09-13 16:58 → N.3E 09-15 12:57
PROVIDERS: ADMIT Internal Medicine; ATTEND Internal Medicine

== ENCOUNTER 2019-10-26 10:53 | Inpatient (IN) ==
[2019-10-26 13:05] LABS: Basophils % 0.1 % (0.0-0.8); Hematocrit 32.7 VOL% (35.7-47.0); Hemoglobin 10.3 GM/DL (12.0-16.0); Immature Granulocytes % 1.3 %; Immature Granulocytes Absolute 0.16 #; Lymphocytes # 0.8 10*3/uL (1.4-4.0); Lymphocytes % 6.2 % (21.3-54.2); Mean Corpuscular HGB Conc 31.5 GM/DL (32-36); Mean Corpuscular Volume 92.9 FL (87-102); Mean Platelet Volume 12.3 FL (9.6-12.0); Monocytes % 2.1 % (1.7-12.7); NRBC # 0.07 10*3/uL; Neutrophils % 90.3 % (38.7-73.9); Platelet Count 221 T/CUMM (130-400); Red Blood Count 3.52 MC/CUMM (3.8-5.5); Red Cell Distribution Width 20.9 % (9.3-17.3); White Blood Count 12.6 T/CUMM (4-12)
[2019-10-26 13:18] LABS: INR 1.2; PT Patient Result 12.3 SECS (9.8-11.9)
[2019-10-26 13:35] LABS: Ferritin 5164.6 ng/ml (8-252)
[2019-10-26] MEDS ORDERED: cefTRIAXone 1,000 MG in SODIUM CHLORIDE 0.9% 100 ML IV STA (13:37)
[2019-10-26] MEDS ORDERED: AZITHROMYCIN INJ 500 MG in SODIUM CHLORIDE 0.9% 250 ML IV STA (13:37)
[2019-10-26 13:54] LABS: Bilirubin,Total 0.8 MG/DL (0.2-1.0); Calcium 8.3 MG/DL (8.5-10.1); Osmolality,Calculated 273.5 MOS/KG (273-304)
[2019-10-26] MEDS ORDERED: POTASSIUM CHLORIDE 20 MEQ TABLET PO STA (14:17)
[2019-10-26] MEDS ORDERED: DOCUSATE SODIUM 100 MG CAPSULE PO PRN (14:19)
[2019-10-26] MEDS ORDERED: ONDANSETRON 4 MG/2 ML VIAL IV PRN (14:19)
[2019-10-26] MEDS ORDERED: ZALEPLON 5 MG CAPSULE PO PRN (14:19)
[2019-10-26] MEDS ORDERED: ACETAMINOPHEN 325 MG TABLET PO PRN (14:19)
[2019-10-26] MEDS ORDERED: GLUCAGON 1 MG VIAL IM PRN (14:19)
[2019-10-26] MEDS ORDERED: hydrALAZINE 20 MG/1 ML VIAL IV PRN (14:19)
[2019-10-26] MEDS ORDERED: BISACODYL 5 MG TABLET PO PRN (14:19)
[2019-10-26] MEDS ORDERED: LACTULOSE 20 GM/30 ML UDCUP PO PRN (14:19)
[2019-10-26] MEDS ORDERED: SODIUM CHLORIDE 0.9% 100 ML IV ONE (14:56)
[2019-10-26] MEDS ORDERED: SODIUM CHLORIDE 0.9% 500 ML IV STA (15:21)
[2019-10-26] MEDS: SODIUM CHLORIDE 0.9% 1,000 ML IV SCH (17:32)
[2019-10-26] MEDS ORDERED: PNEUMOCOCCAL VACCINE (13 VALENT) 0.5 ML SYRINGE IM ONE (18:06)
[2019-10-26] MEDS: SIMVASTATIN 40 MG TABLET PO SCH (20:15)
[2019-10-26] MEDS: guaiFENesin/DM ER 600-30 MG TABLET PO SCH (20:15)
[2019-10-26] MEDS: PANTOPRAZOLE 40 MG TABLET PO SCH (20:15)
[2019-10-26] MEDS: ASCORBIC ACID 500 MG TABLET PO SCH (20:15)
[2019-10-26] MEDS: FERROUS SULFATE 325 MG TABLET PO SCH (20:15)
[2019-10-26] MEDS: BENZONATATE 100 MG CAPSULE PO SCH (20:15)
[2019-10-26] MEDS: APIXABAN 5 MG TABLET PO SCH (20:15)
[2019-10-27] MEDS: SODIUM CHLORIDE 0.9% 1,000 ML IV SCH (05:30)
[2019-10-27 06:57] LABS: Basophils % 0.1 % (0.0-0.8); Hemoglobin 8.3 GM/DL (12.0-16.0); Immature Granulocytes % 1.4 %; Immature Granulocytes Absolute 0.14 #; Lymphocytes # 0.8 10*3/uL (1.4-4.0); Lymphocytes % 7.8 % (21.3-54.2); Mean Corpuscular HGB Conc 31.9 GM/DL (32-36); Mean Corpuscular Volume 92.9 FL (87-102); Mean Platelet Volume 12.6 FL (9.6-12.0); NRBC # 0.04 10*3/uL; Neutrophils % 88.7 % (38.7-73.9); Platelet Count 182 T/CUMM (130-400); Red Cell Distribution Width 20.5 % (9.3-17.3); White Blood Count 10.3 T/CUMM (4-12)
[2019-10-27 07:47] LABS: Albumin 1.7 G/DL (3.4-5.0); Bilirubin,Total 0.6 MG/DL (0.2-1.0); Calcium 7.8 MG/DL (8.5-10.1); Ferritin 4380.1 ng/ml (8-252); Osmolality,Calculated 278.4 MOS/KG (273-304); Total Protein 4.9 G/DL (6.4-8.3)
[2019-10-27] MEDS ORDERED: POTASSIUM CHLORIDE 20 MEQ TABLET PO ONE (08:23)
[2019-10-27] MEDS: allopurinoL 100 MG TABLET PO SCH (09:24)
[2019-10-27] MEDS: ASCORBIC ACID 500 MG TABLET PO SCH ×2 (09:24→20:32)
[2019-10-27] MEDS: MEGESTROL 400 MG/10 ML UDCUP PO SCH (09:25)
[2019-10-27] MEDS: POLYETHYLENE GLYCOL POWDER 17 GM PACK PO SCH (09:25)
[2019-10-27] MEDS: APIXABAN 5 MG TABLET PO SCH ×2 (09:25→20:32)
[2019-10-27] MEDS: BENZONATATE 100 MG CAPSULE PO SCH ×3 (09:25→20:32)
[2019-10-27] MEDS: AZITHROMYCIN 250 MG TABLET PO SCH (09:25)
[2019-10-27] MEDS: PANTOPRAZOLE 40 MG TABLET PO SCH ×2 (09:25→20:32)
[2019-10-27] MEDS: FERROUS SULFATE 325 MG TABLET PO SCH ×2 (09:25→20:32)
[2019-10-27] MEDS: cefTRIAXone 1,000 MG in SYRINGE 1 EACH IV SCH (09:25)
[2019-10-27] MEDS: guaiFENesin/DM ER 600-30 MG TABLET PO SCH ×2 (09:25→20:32)
[2019-10-27] MEDS: LEVOTHYROXINE 50 MCG TABLET PO SCH (09:25)
[2019-10-27] MEDS: SIMVASTATIN 40 MG TABLET PO SCH (20:32)
[2019-10-27] MEDS ORDERED: AZITHROMYCIN INJ 500 MG in SODIUM CHLORIDE 0.9% 250 ML IV SCH (21:00)
[2019-10-28 06:28] LABS: Basophils % 0.1 % (0.0-0.8); Hematocrit 26.6 VOL% (35.7-47.0); Hemoglobin 8.5 GM/DL (12.0-16.0); Immature Granulocytes Absolute 0.11 #; Lymphocytes # 1.1 10*3/uL (1.4-4.0); Lymphocytes % 9.9 % (21.3-54.2); Mean Corpuscular Volume 91.4 FL (87-102); Mean Platelet Volume 12.1 FL (9.6-12.0); Monocytes % 1.8 % (1.7-12.7); NRBC # 0.02 10*3/uL; Neutrophils % 87.2 % (38.7-73.9); Platelet Count 187 T/CUMM (130-400); Red Blood Count 2.91 MC/CUMM (3.8-5.5); Red Cell Distribution Width 20.8 % (9.3-17.3); White Blood Count 10.6 T/CUMM (4-12)
[2019-10-28 06:51] LABS: Albumin 1.6 G/DL (3.4-5.0); Ferritin 4473.5 ng/ml (8-252); Osmolality,Calculated 284.3 MOS/KG (273-304); Total Protein 4.9 G/DL (6.4-8.3)
[2019-10-28] MEDS: guaiFENesin/DM ER 600-30 MG TABLET PO SCH ×2 (08:45→20:57)
[2019-10-28] MEDS: FERROUS SULFATE 325 MG TABLET PO SCH ×2 (08:45→20:58)
[2019-10-28] MEDS: ASCORBIC ACID 500 MG TABLET PO SCH ×2 (08:45→20:57)
[2019-10-28] MEDS: allopurinoL 100 MG TABLET PO SCH (08:46)
[2019-10-28] MEDS: APIXABAN 5 MG TABLET PO SCH ×2 (08:46→20:58)
[2019-10-28] MEDS: MEGESTROL 400 MG/10 ML UDCUP PO SCH (08:47)
[2019-10-28] MEDS: POLYETHYLENE GLYCOL POWDER 17 GM PACK PO SCH (08:47)
[2019-10-28] MEDS: PANTOPRAZOLE 40 MG TABLET PO SCH ×2 (08:48→20:58)
[2019-10-28] MEDS: cefTRIAXone 1,000 MG in SYRINGE 1 EACH IV SCH (08:48)
[2019-10-28] MEDS: AZITHROMYCIN 250 MG TABLET PO SCH (08:49)
[2019-10-28] MEDS: BENZONATATE 100 MG CAPSULE PO SCH ×3 (08:49→20:58)
[2019-10-28] MEDS: LEVOTHYROXINE 50 MCG TABLET PO SCH (08:49)
[2019-10-28] MEDS: MENTHOL/ZINC OXIDE OINT 71 GM JAR TOP SCH ×2 (11:30→21:08)
[2019-10-28] MEDS ORDERED: ALBUMIN 25% 25 GM in PREMIX 1 EACH IV PRN ×2 (16:18)
[2019-10-28] MEDS ORDERED: EPOETIN ALFA 2,000 UNIT/1 ML VIAL IV PRN (16:18)
[2019-10-28] MEDS: SIMVASTATIN 40 MG TABLET PO SCH (20:57)
[2019-10-29 06:31] LABS: Basophils % 0.1 % (0.0-0.8); Hematocrit 29.8 VOL% (35.7-47.0); Hemoglobin 9.2 GM/DL (12.0-16.0); Immature Granulocytes % 1.1 %; Immature Granulocytes Absolute 0.17 #; Lymphocytes # 1.1 10*3/uL (1.4-4.0); Lymphocytes % 7.4 % (21.3-54.2); Mean Corpuscular HGB Conc 30.9 GM/DL (32-36); Mean Corpuscular Volume 95.2 FL (87-102); Mean Platelet Volume 12.5 FL (9.6-12.0); Monocytes % 1.6 % (1.7-12.7); NRBC # 0.07 10*3/uL; Neutrophils % 89.8 % (38.7-73.9); Platelet Count 245 T/CUMM (130-400); Red Blood Count 3.13 MC/CUMM (3.8-5.5); Red Cell Distribution Width 21.2 % (9.3-17.3); White Blood Count 15.2 T/CUMM (4-12)
[2019-10-29 07:00] LABS: Hypochromasia 1+
[2019-10-29 07:01] LABS: Acanthocytes Few; Anisocytosis 1+; Target Cells Slight
[2019-10-29 07:02] LABS: Platelet Estimate Normal; Polychromasia Slight
[2019-10-29 07:05] LABS: Calcium 8.6 MG/DL (8.5-10.1); Osmolality,Calculated 286.3 MOS/KG (273-304)
[2019-10-29 07:25] LABS: Albumin 2.2 G/DL (3.4-5.0); Bilirubin,Total 0.8 MG/DL (0.2-1.0); Calcium 8.3 MG/DL (8.5-10.1); Osmolality,Calculated 280.7 MOS/KG (273-304)
[2019-10-29] MEDS ORDERED: POTASSIUM CHLORIDE 20 MEQ TABLET PO ONE (07:44)
[2019-10-29] MEDS ORDERED: DIGOXIN 0.5 MG/2 ML AMP ONE (08:18)
[2019-10-29] MEDS ORDERED: POTASSIUM CHLORIDE RIDER 100 ML IV ONE (08:22)
[2019-10-29] MEDS ORDERED: DIGOXIN 0.5 MG/2 ML AMP IV ONE (08:30)
[2019-10-29] MEDS ORDERED: POTASSIUM CHLORIDE RIDER 10 MEQ in PREMIX 1 EACH IV ONE (08:30)
[2019-10-29] MEDS ORDERED: carvediloL 12.5 MG TABLET PO SCH (09:00)
[2019-10-29] MEDS ORDERED: DILTIAZEM 30 MG TABLET PO SCH (09:00)
[2019-10-29] MEDS: MENTHOL/ZINC OXIDE OINT 71 GM JAR TOP SCH ×2 (09:15→21:57)
[2019-10-29 09:16] LABS: ABG Base Excess 3.5 MMOL/L (-2.5-2.5); ABG HCO3 27.5 MMOL/L (20-26); ABG Oxygen Saturation 91.4 % (95-100); ABG PCO2 32.4 MM HG (35-48); ABG PH 7.517 (7.35-7.45); ABG PO2 57.1 MM HG (80-95); ABG TCO2 24.3 MMOL/L (23-27); Allen Test Positive
[2019-10-29] MEDS ORDERED: AMIODARONE INJ 150 MG in DEXTROSE 5% 100 ML IV ONE (09:24)
[2019-10-29] MEDS ORDERED: AMIODARONE INJ 450 MG in DEXTROSE 5% 241 ML IV SCH (09:30)
[2019-10-29] MEDS: cefTRIAXone 1,000 MG in SYRINGE 1 EACH IV SCH (09:53)
[2019-10-29] MEDS: carvediloL 6.25 MG TABLET PO SCH ×2 (10:20→21:57)
[2019-10-29] MEDS: APIXABAN 5 MG TABLET PO SCH ×2 (10:23→21:58)
[2019-10-29] MEDS: guaiFENesin/DM ER 600-30 MG TABLET PO SCH ×2 (10:23→21:58)
[2019-10-29] MEDS: FERROUS SULFATE 325 MG TABLET PO SCH ×2 (10:23→21:58)
[2019-10-29] MEDS: allopurinoL 100 MG TABLET PO SCH (10:24)
[2019-10-29] MEDS: LEVOTHYROXINE 50 MCG TABLET PO SCH (10:24)
[2019-10-29] MEDS: BENZONATATE 100 MG CAPSULE PO SCH ×3 (10:24→21:58)
[2019-10-29] MEDS: AZITHROMYCIN 250 MG TABLET PO SCH (10:25)
[2019-10-29] MEDS: MEGESTROL 400 MG/10 ML UDCUP PO SCH (10:25)
[2019-10-29] MEDS: PANTOPRAZOLE 40 MG TABLET PO SCH ×2 (10:25→21:58)
[2019-10-29] MEDS: POLYETHYLENE GLYCOL POWDER 17 GM PACK PO SCH (10:55)
[2019-10-29] MEDS: ASCORBIC ACID 500 MG TABLET PO SCH ×2 (12:03→21:58)
[2019-10-29] MEDS: PHENYLEPHRINE DRIP 40 MG/250 ML PREMIX IV PRN ×2 (12:16→21:05)
[2019-10-29 12:17] LABS: Ferritin 8015.3 ng/ml (8-252)
[2019-10-29] MEDS: AMIODARONE INJ 450 MG in DEXTROSE 5% 241 ML IV SCH (17:54)
[2019-10-29 18:17] LABS: Calcium 8.2 MG/DL (8.5-10.1); Osmolality,Calculated 281.7 MOS/KG (273-304)
[2019-10-29] MEDS: ATORVASTATIN 40 MG TABLET PO SCH (21:58)
[2019-10-30 04:35] LABS: Basophils % 0.1 % (0.0-0.8); Hematocrit 25.8 VOL% (35.7-47.0); Hemoglobin 8.1 GM/DL (12.0-16.0); Immature Granulocytes % 1.2 %; Immature Granulocytes Absolute 0.18 #; Lymphocytes % 6.2 % (21.3-54.2); Mean Corpuscular HGB Conc 31.4 GM/DL (32-36); Mean Corpuscular Volume 91.8 FL (87-102); Mean Platelet Volume 12.2 FL (9.6-12.0); Monocytes % 1.3 % (1.7-12.7); NRBC # 0.21 10*3/uL; Neutrophils % 91.2 % (38.7-73.9); Platelet Count 275 T/CUMM (130-400); Red Blood Count 2.81 MC/CUMM (3.8-5.5); Red Cell Distribution Width 20.9 % (9.3-17.3); White Blood Count 15.6 T/CUMM (4-12)
[2019-10-30 04:57] LABS: Band Neutrophils 1 % (0-10); Burr Cells Slight; Hypochromasia 1+; Lymphocytes 9 % (20-55); Nucleated Red Blood Cells 2 (0-5); Ovalocytes Slight; Platelet Estimate Adequate; Segmented Neutrophils 90 % (50-85); Total Cells Counted 100
[2019-10-30 05:58] LABS: Calcium 8.1 MG/DL (8.5-10.1); Osmolality,Calculated 290.4 MOS/KG (273-304)
[2019-10-30 06:13] LABS: Bilirubin,Total 0.5 MG/DL (0.2-1.0); Calcium 8.4 MG/DL (8.5-10.1); Ferritin 10359.3 ng/ml (8-252); Osmolality,Calculated 287.5 MOS/KG (273-304); Total Protein 5.4 G/DL (6.4-8.3)
[2019-10-30] MEDS: MENTHOL/ZINC OXIDE OINT 71 GM JAR TOP SCH ×3 (07:15→21:09)
[2019-10-30] MEDS: carvediloL 6.25 MG TABLET PO SCH ×2 (08:21→21:09)
[2019-10-30] MEDS: MEGESTROL 400 MG/10 ML UDCUP PO SCH (08:22)
[2019-10-30] MEDS: APIXABAN 5 MG TABLET PO SCH ×2 (08:22→21:10)
[2019-10-30] MEDS: POLYETHYLENE GLYCOL POWDER 17 GM PACK PO SCH (08:22)
[2019-10-30] MEDS: FERROUS SULFATE 325 MG TABLET PO SCH ×2 (08:22→21:10)
[2019-10-30] MEDS: ASCORBIC ACID 500 MG TABLET PO SCH ×2 (08:23→21:10)
[2019-10-30] MEDS: guaiFENesin/DM ER 600-30 MG TABLET PO SCH ×2 (08:23→21:10)
[2019-10-30] MEDS: PANTOPRAZOLE 40 MG TABLET PO SCH ×2 (08:23→21:10)
[2019-10-30] MEDS: LEVOTHYROXINE 50 MCG TABLET PO SCH (08:23)
[2019-10-30] MEDS: AZITHROMYCIN 250 MG TABLET PO SCH (08:24)
[2019-10-30] MEDS: allopurinoL 100 MG TABLET PO SCH (08:24)
[2019-10-30] MEDS: BENZONATATE 100 MG CAPSULE PO SCH ×3 (09:24→21:10)
[2019-10-30] MEDS: AMIODARONE INJ 450 MG in DEXTROSE 5% 241 ML IV SCH ×2 (09:24→22:54)
[2019-10-30] MEDS: PHENYLEPHRINE DRIP 40 MG/250 ML PREMIX IV PRN ×2 (09:25→16:54)
[2019-10-30] MEDS: cefTRIAXone 1,000 MG in SYRINGE 1 EACH IV SCH (09:32)
[2019-10-30] MEDS ORDERED: SODIUM CHLORIDE 0.9% 1,000 ML IV PRN (13:25)
[2019-10-30] MEDS: ATORVASTATIN 40 MG TABLET PO SCH (21:10)
[2019-10-31] MEDS: PHENYLEPHRINE DRIP 40 MG/250 ML PREMIX IV PRN ×3 (00:07→10:21)
[2019-10-31] MEDS: AMIODARONE 200 MG TABLET PO SCH ×3 (00:08→20:57)
[2019-10-31 04:29] LABS: Basophils % 0.1 % (0.0-0.8); Hematocrit 24.1 VOL% (35.7-47.0); Hemoglobin 7.4 GM/DL (12.0-16.0); Immature Granulocytes % 2.1 %; Immature Granulocytes Absolute 0.36 #; Lymphocytes # 0.5 10*3/uL (1.4-4.0); Lymphocytes % 2.6 % (21.3-54.2); Mean Corpuscular HGB Conc 30.7 GM/DL (32-36); Mean Corpuscular Volume 97.6 FL (87-102); Monocytes % 1.3 % (1.7-12.7); NRBC # 0.53 10*3/uL; Neutrophils % 93.9 % (38.7-73.9); Platelet Count 222 T/CUMM (130-400); Red Blood Count 2.47 MC/CUMM (3.8-5.5); Red Cell Distribution Width 20.9 % (9.3-17.3); White Blood Count 17.4 T/CUMM (4-12)
[2019-10-31 04:55] LABS: Band Neutrophils 8 % (0-10); Hypochromasia 1+; Lymphocytes 2 % (20-55); Nucleated Red Blood Cells 2 (0-5); Segmented Neutrophils 88 % (50-85); Total Cells Counted 100
[2019-10-31 04:56] LABS: Acanthocytes Few; Anisocytosis 1+; Microcytosis 1+; Ovalocytes Slight
[2019-10-31 04:57] LABS: Platelet Estimate Normal
[2019-10-31 05:07] LABS: Calcium 8.2 MG/DL (8.5-10.1); Osmolality,Calculated 281.7 MOS/KG (273-304)
[2019-10-31 05:25] LABS: Albumin 1.8 G/DL (3.4-5.0); Bilirubin,Total 0.5 MG/DL (0.2-1.0); Calcium 8.2 MG/DL (8.5-10.1); Ferritin 7444.4 ng/ml (8-252); Osmolality,Calculated 276.1 MOS/KG (273-304)
[2019-10-31] MEDS: cefTRIAXone 1,000 MG in SYRINGE 1 EACH IV SCH (08:20)
[2019-10-31] MEDS: MEGESTROL 400 MG/10 ML UDCUP PO SCH (08:21)
[2019-10-31] MEDS: allopurinoL 100 MG TABLET PO SCH (08:21)
[2019-10-31] MEDS: APIXABAN 5 MG TABLET PO SCH ×2 (08:21→20:57)
[2019-10-31] MEDS: ASCORBIC ACID 500 MG TABLET PO SCH ×2 (08:21→20:57)
[2019-10-31] MEDS: FERROUS SULFATE 325 MG TABLET PO SCH ×2 (08:21→20:57)
[2019-10-31] MEDS: LEVOTHYROXINE 50 MCG TABLET PO SCH (08:21)
[2019-10-31] MEDS: carvediloL 6.25 MG TABLET PO SCH ×2 (08:26→20:25)
[2019-10-31] MEDS: BENZONATATE 100 MG CAPSULE PO SCH (08:26)
[2019-10-31] MEDS: POLYETHYLENE GLYCOL POWDER 17 GM PACK PO SCH (08:26)
[2019-10-31] MEDS: PANTOPRAZOLE 40 MG TABLET PO SCH ×2 (08:26→20:57)
[2019-10-31] MEDS: guaiFENesin/DM ER 600-30 MG TABLET PO SCH (08:26)
[2019-10-31] MEDS ORDERED: ASPIRIN 325 MG TABLET PO SCH (09:00)
[2019-10-31] MEDS ORDERED: BENZONATATE 100 MG CAPSULE PO PRN (13:53)
[2019-10-31] MEDS ORDERED: guaiFENesin/DM ER 600-30 MG TABLET PO PRN (13:53)
[2019-10-31] MEDS: MENTHOL/ZINC OXIDE OINT 71 GM JAR TOP SCH ×2 (13:55→20:57)
[2019-10-31] MEDS: DEXAMETHASONE 4 MG/1 ML VIAL IV SCH (13:56)
[2019-10-31] MEDS: metroNIDAZOLE INJ 500 MG in PREMIX 1 EACH IV SCH ×2 (13:56→22:29)
[2019-10-31] MEDS: POTASSIUM CHLORIDE 20 MEQ/15 ML UDCUP PO SCH ×2 (14:00→18:00)
[2019-10-31] MEDS: PHENYLEPHRINE INJ 160 MG in SODIUM CHLORIDE 0.9% 234 ML IV PRN (14:10)
[2019-10-31 20:37] LABS: Calcium 8.6 MG/DL (8.5-10.1); Osmolality,Calculated 288.7 MOS/KG (273-304)
[2019-10-31] MEDS: ATORVASTATIN 40 MG TABLET PO SCH (20:57)
[2019-11-01 05:22] LABS: Basophils % 0.1 % (0.0-0.8); Hematocrit 24.5 VOL% (35.7-47.0); Hemoglobin 7.1 GM/DL (12.0-16.0); Immature Granulocytes % 1.2 %; Immature Granulocytes Absolute 0.18 #; Lymphocytes # 0.2 10*3/uL (1.4-4.0); Lymphocytes % 1.2 % (21.3-54.2); Mean Corpuscular Volume 101.2 FL (87-102); Mean Platelet Volume 12.5 FL (9.6-12.0); Monocytes % 0.8 % (1.7-12.7); NRBC # 0.93 10*3/uL; Neutrophils % 96.7 % (38.7-73.9); Platelet Count 266 T/CUMM (130-400); Red Blood Count 2.42 MC/CUMM (3.8-5.5); Red Cell Distribution Width 21.4 % (9.3-17.3); White Blood Count 14.7 T/CUMM (4-12)
[2019-11-01 05:46] LABS: Bilirubin,Total 0.4 MG/DL (0.2-1.0); Calcium 8.6 MG/DL (8.5-10.1); Ferritin 5666.7 ng/ml (8-252); Osmolality,Calculated 290.7 MOS/KG (273-304); Total Protein 5.8 G/DL (6.4-8.3)
[2019-11-01 06:03] LABS: Band Neutrophils 2 % (0-10); Hypochromasia 1+; Lymphocytes 1 % (20-55); Nucleated Red Blood Cells 5 (0-5); Segmented Neutrophils 96 % (50-85); Total Cells Counted 100
[2019-11-01 06:04] LABS: Acanthocytes Few; Anisocytosis 1+; Microcytosis 1+; Platelet Estimate Normal
[2019-11-01] MEDS: metroNIDAZOLE INJ 500 MG in PREMIX 1 EACH IV SCH ×2 (07:32→15:10)
[2019-11-01] MEDS: PHENYLEPHRINE INJ 160 MG in SODIUM CHLORIDE 0.9% 234 ML IV PRN ×2 (07:32→18:32)
[2019-11-01] MEDS: LEVOTHYROXINE 50 MCG TABLET PO SCH (08:03)
[2019-11-01] MEDS: MENTHOL/ZINC OXIDE OINT 71 GM JAR TOP SCH ×2 (08:03→20:26)
[2019-11-01] MEDS: ASCORBIC ACID 500 MG TABLET PO SCH ×2 (08:03→20:26)
[2019-11-01] MEDS: AMIODARONE 200 MG TABLET PO SCH ×2 (08:03→20:26)
[2019-11-01] MEDS: ASPIRIN CHEW 81 MG TABLET PO SCH (08:03)
[2019-11-01] MEDS: DEXAMETHASONE 4 MG/1 ML VIAL IV SCH (08:03)
[2019-11-01] MEDS: APIXABAN 5 MG TABLET PO SCH ×2 (08:03→20:26)
[2019-11-01] MEDS: PANTOPRAZOLE 40 MG TABLET PO SCH (08:03)
[2019-11-01] MEDS: FERROUS SULFATE 325 MG TABLET PO SCH ×2 (08:03→20:26)
[2019-11-01] MEDS: POLYETHYLENE GLYCOL POWDER 17 GM PACK PO SCH (08:04)
[2019-11-01] MEDS: carvediloL 6.25 MG TABLET PO SCH ×2 (08:04→20:26)
[2019-11-01] MEDS: allopurinoL 100 MG TABLET PO SCH (08:04)
[2019-11-01] MEDS: cefTRIAXone 1,000 MG in SYRINGE 1 EACH IV SCH (08:04)
[2019-11-01 09:33] LABS: ABG Base Excess -4.2 MMOL/L (-2.5-2.5); ABG HCO3 20.8 MMOL/L (20-26); ABG Oxygen Saturation 90.1 % (95-100); ABG PO2 70.5 MM HG (80-95); Allen Test Positive; Pt O2 Delivery Device Venturi Mask
[2019-11-01 09:35] LABS: ABG PH 7.141 (7.35-7.45)
[2019-11-01 09:36] LABS: ABG PCO2 74.9 MM HG (35-48)
[2019-11-01] MEDS ORDERED: SODIUM BICARBONATE 50 MEQ/50 ML VIAL IV ONE (09:52)
[2019-11-01] MEDS ORDERED: ETOMIDATE 20 MG/10 ML VIAL IV ONE ×2 (10:18→10:27)
[2019-11-01] MEDS ORDERED: SUCCINYLCHOLINE 200 MG/10 ML VIAL ONE (10:20)
[2019-11-01] MEDS ORDERED: SUCCINYLCHOLINE 200 MG/10 ML VIAL IV ONE (10:27)
[2019-11-01 12:39] LABS: ABG Base Excess -0.7 MMOL/L (-2.5-2.5); ABG HCO3 23.7 MMOL/L (20-26); ABG Oxygen Saturation 99.5 % (95-100); ABG PCO2 38.2 MM HG (35-48); ABG PH 7.411 (7.35-7.45); ABG PO2 375.3 MM HG (80-95); ABG TCO2 24.9 MMOL/L (23-27)
[2019-11-01] MEDS: ATORVASTATIN 40 MG TABLET PO SCH (20:26)
[2019-11-01 21:11] LABS: Calcium 8.2 MG/DL (8.5-10.1); Osmolality,Calculated 290.4 MOS/KG (273-304)
[2019-11-02 04:12] LABS: Allen Test Positive; Pt O2 Delivery Device Ventilator
[2019-11-02 04:17] LABS: ABG Base Excess -2.1 MMOL/L (-2.5-2.5); ABG HCO3 21.8 MMOL/L (20-26); ABG Oxygen Saturation 97.3 % (95-100); ABG PCO2 34.2 MM HG (35-48); ABG PH 7.423 (7.35-7.45); ABG PO2 92.6 MM HG (80-95); ABG TCO2 22.9 MMOL/L (23-27)
[2019-11-02 05:44] LABS: Basophils % 0.1 % (0.0-0.8); Hematocrit 29.4 VOL% (35.7-47.0); Hemoglobin 9.4 GM/DL (12.0-16.0); Immature Granulocytes Absolute 0.15 #; Lymphocytes # 0.3 10*3/uL (1.4-4.0); Mean Corpuscular Volume 93.9 FL (87-102); Mean Platelet Volume 12.2 FL (9.6-12.0); Monocytes % 1.4 % (1.7-12.7); NRBC # 1.17 10*3/uL; Neutrophils % 95.5 % (38.7-73.9); Platelet Count 236 T/CUMM (130-400); Red Blood Count 3.13 MC/CUMM (3.8-5.5); Red Cell Distribution Width 19.1 % (9.3-17.3); White Blood Count 14.8 T/CUMM (4-12)
[2019-11-02 06:04] LABS: Calcium 8.2 MG/DL (8.5-10.1); Osmolality,Calculated 294.3 MOS/KG (273-304)
[2019-11-02 06:36] LABS: Anisocytosis 3+; Band Neutrophils 7 % (0-10); Basophilic Stippling Slight; Lymphocytes 7 % (20-55); Nucleated Red Blood Cells 13 (0-5); Platelet Estimate Normal; Poikilocytosis 1+; Segmented Neutrophils 86 % (50-85); Total Cells Counted 100
[2019-11-02 06:37] LABS: Polychromasia Slight
[2019-11-02] MEDS: metroNIDAZOLE INJ 500 MG in PREMIX 1 EACH IV SCH ×4 (06:37→21:01)
[2019-11-02] MEDS: PHENYLEPHRINE INJ 160 MG in SODIUM CHLORIDE 0.9% 234 ML IV PRN (07:13)
[2019-11-02] MEDS ORDERED: POTASSIUM CHLORIDE 20 MEQ/15 ML UDCUP PO ONE (08:01)
[2019-11-02] MEDS ORDERED: POTASSIUM CHLORIDE 20 MEQ/15 ML UDCUP ONE ×2 (08:04→16:24)
[2019-11-02] MEDS: ASPIRIN CHEW 81 MG TABLET PO SCH (08:52)
[2019-11-02] MEDS: FERROUS SULFATE 325 MG TABLET PO SCH ×2 (08:52→20:12)
[2019-11-02] MEDS: POLYETHYLENE GLYCOL POWDER 17 GM PACK PO SCH (08:52)
[2019-11-02] MEDS: LEVOTHYROXINE 50 MCG TABLET PO SCH (08:52)
[2019-11-02] MEDS: APIXABAN 5 MG TABLET PO SCH ×2 (08:53→20:12)
[2019-11-02] MEDS: carvediloL 6.25 MG TABLET PO SCH ×2 (08:53→20:12)
[2019-11-02] MEDS: ASCORBIC ACID 500 MG TABLET PO SCH ×2 (08:53→20:11)
[2019-11-02] MEDS: DEXAMETHASONE 4 MG/1 ML VIAL IV SCH (08:53)
[2019-11-02] MEDS: AMIODARONE 200 MG TABLET PO SCH ×2 (08:53→20:12)
[2019-11-02] MEDS: PANTOPRAZOLE 40 MG VIAL IV SCH (08:54)
[2019-11-02] MEDS: cefTRIAXone 1,000 MG in SYRINGE 1 EACH IV SCH (08:54)
[2019-11-02] MEDS: MENTHOL/ZINC OXIDE OINT 71 GM JAR TOP SCH ×2 (08:54→20:15)
[2019-11-02] MEDS: DOCUSATE SODIUM 100 MG CAPSULE PO PRN ×2 (08:54→20:11)
[2019-11-02] MEDS: INSULIN REGULAR 100 UNIT/ML SUBCUT SCH ×2 (12:51→18:19)
[2019-11-02] MEDS: METOCLOPRAMIDE 10 MG/2 ML VIAL IV SCH ×2 (12:51→18:19)
[2019-11-02] MEDS: POTASSIUM CHLORIDE 20 MEQ/15 ML UDCUP NG SCH ×2 (12:51→16:26)
[2019-11-02] MEDS: ATORVASTATIN 40 MG TABLET PO SCH (20:15)
[2019-11-03] MEDS: INSULIN REGULAR 100 UNIT/ML SUBCUT SCH ×4 (01:10→18:04)
[2019-11-03] MEDS: METOCLOPRAMIDE 10 MG/2 ML VIAL IV SCH ×5 (01:10→23:08)
[2019-11-03] MEDS: PHENYLEPHRINE INJ 160 MG in SODIUM CHLORIDE 0.9% 234 ML IV PRN (02:13)
[2019-11-03 04:09] LABS: Basophils % 0.2 % (0.0-0.8); Eosinophils # 0.8 10*3/uL (0.0-0.87); Eosinophils % 6.9 % (0.00-10.9); Hematocrit 22.6 VOL% (35.7-47.0); Immature Granulocytes % 1.5 %; Immature Granulocytes Absolute 0.16 #; Mean Corpuscular HGB Conc 39.4 GM/DL (32-36); Mean Corpuscular Volume 96.6 FL (87-102); Mean Platelet Volume 12.6 FL (9.6-12.0); Monocytes % 1.9 % (1.7-12.7); NRBC # 2.54 10*3/uL; Neutrophils % 89.5 % (38.7-73.9); Platelet Count 213 T/CUMM (130-400); Red Blood Count 2.34 MC/CUMM (3.8-5.5); Red Cell Distribution Width 18.8 % (9.3-17.3); White Blood Count 10.9 T/CUMM (4-12)
[2019-11-03 04:22] LABS: Calcium 8.3 MG/DL (8.5-10.1)
[2019-11-03 04:44] LABS: Hemoglobin 8.6 GM/DL (12.0-16.0)
[2019-11-03 05:05] LABS: ABG HCO3 21.9 MMOL/L (20-26); ABG Oxygen Saturation 99.4 % (95-100); ABG PCO2 35.2 MM HG (35-48); ABG PH 7.391 (7.35-7.45); ABG TCO2 19.7 MMOL/L (23-27); Allen Test Positive; Pt O2 Delivery Device Ventilator
[2019-11-03 05:32] LABS: Anisocytosis 1+; Band Neutrophils 1 % (0-10); Lymphocytes 7 % (20-55); Nucleated Red Blood Cells 6 (0-5); Ovalocytes 1+; Segmented Neutrophils 92 % (50-85); Total Cells Counted 100
[2019-11-03 05:33] LABS: Platelet Estimate Normal
[2019-11-03] MEDS: metroNIDAZOLE INJ 500 MG in PREMIX 1 EACH IV SCH ×3 (06:24→21:52)
[2019-11-03] MEDS: FERROUS SULFATE 325 MG TABLET PO SCH ×2 (09:00→21:53)
[2019-11-03] MEDS: cefTRIAXone 1,000 MG in SYRINGE 1 EACH IV SCH (09:00)
[2019-11-03] MEDS: APIXABAN 5 MG TABLET PO SCH ×2 (09:00→21:54)
[2019-11-03] MEDS: ASPIRIN CHEW 81 MG TABLET PO SCH (09:00)
[2019-11-03] MEDS: DEXAMETHASONE 4 MG/1 ML VIAL IV SCH (09:00)
[2019-11-03] MEDS: POLYETHYLENE GLYCOL POWDER 17 GM PACK PO SCH (09:00)
[2019-11-03] MEDS: LEVOTHYROXINE 50 MCG TABLET PO SCH (09:00)
[2019-11-03] MEDS: ASCORBIC ACID 500 MG TABLET PO SCH ×2 (09:00→21:53)
[2019-11-03] MEDS: AMIODARONE 200 MG TABLET PO SCH ×2 (09:00→21:51)
[2019-11-03] MEDS: PANTOPRAZOLE 40 MG VIAL IV SCH (09:00)
[2019-11-03] MEDS: MENTHOL/ZINC OXIDE OINT 71 GM JAR TOP SCH ×2 (09:30→21:54)
[2019-11-03] MEDS ORDERED: POTASSIUM CHLORIDE 20 MEQ/15 ML UDCUP PER TUBE SCH (09:30)
[2019-11-03] MEDS: carvediloL 6.25 MG TABLET PO SCH (09:54)
[2019-11-03] MEDS ORDERED: POTASSIUM CHLORIDE 20 MEQ/15 ML UDCUP PER TUBE ONE (10:30)
[2019-11-03] MEDS ORDERED: NOREPINEPHRINE 16 MG in SODIUM CHLORIDE 0.9% 234 ML IV PRN (21:46)
[2019-11-03] MEDS: ATORVASTATIN 40 MG TABLET PO SCH (21:54)
[2019-11-03] MEDS: DOCUSATE SODIUM 100 MG CAPSULE PO PRN (21:54)
[2019-11-04] MEDS: INSULIN REGULAR 100 UNIT/ML SUBCUT SCH ×4 (00:09→18:29)
[2019-11-04 04:32] LABS: Basophils % 0.1 % (0.0-0.8); Hematocrit 28.6 VOL% (35.7-47.0); Immature Granulocytes % 2.1 %; Immature Granulocytes Absolute 0.29 #; Lymphocytes # 0.4 10*3/uL (1.4-4.0); Lymphocytes % 2.7 % (21.3-54.2); Mean Corpuscular HGB Conc 31.5 GM/DL (32-36); Mean Corpuscular Volume 95.7 FL (87-102); Monocytes % 2.1 % (1.7-12.7); Platelet Count 224 T/CUMM (130-400); Red Blood Count 2.99 MC/CUMM (3.8-5.5); Red Cell Distribution Width 20.9 % (9.3-17.3); White Blood Count 13.5 T/CUMM (4-12)
[2019-11-04 04:45] LABS: Allen Test Positive; Pt O2 Delivery Device Ventilator
[2019-11-04 04:46] LABS: ABG Base Excess -5.7 MMOL/L (-2.5-2.5); ABG HCO3 18.8 MMOL/L (20-26); ABG Oxygen Saturation 98.5 % (95-100); ABG PH 7.374 (7.35-7.45); ABG PO2 137.3 MM HG (80-95); ABG TCO2 19.8 MMOL/L (23-27)
[2019-11-04 04:51] LABS: Calcium 8.5 MG/DL (8.5-10.1); Osmolality,Calculated 311.1 MOS/KG (273-304)
[2019-11-04 05:01] LABS: Lymphocytes 5 % (20-55); Nucleated Red Blood Cells 2 (0-5); Segmented Neutrophils 93 % (50-85); Total Cells Counted 100
[2019-11-04 05:02] LABS: Hypochromasia 1+; Platelet Estimate Adequate
[2019-11-04 05:11] LABS: Ferritin 2759.6 ng/ml (8-252)
[2019-11-04] MEDS: metroNIDAZOLE INJ 500 MG in PREMIX 1 EACH IV SCH ×3 (05:21→21:10)
[2019-11-04] MEDS: METOCLOPRAMIDE 10 MG/2 ML VIAL IV SCH ×4 (05:21→23:13)
[2019-11-04] MEDS ORDERED: MAGNESIUM SULF RIDER 2 GM in PREMIX 1 EACH IV ONE (07:59)
[2019-11-04] MEDS: FERROUS SULFATE 325 MG TABLET PO SCH ×2 (08:59→21:11)
[2019-11-04] MEDS: LEVOTHYROXINE 50 MCG TABLET PO SCH (09:00)
[2019-11-04] MEDS: ASCORBIC ACID 500 MG TABLET PO SCH ×2 (09:00→21:11)
[2019-11-04] MEDS: POLYETHYLENE GLYCOL POWDER 17 GM PACK PO SCH (09:00)
[2019-11-04] MEDS: APIXABAN 5 MG TABLET PO SCH ×2 (09:00→21:11)
[2019-11-04] MEDS: ASPIRIN CHEW 81 MG TABLET PO SCH (09:00)
[2019-11-04] MEDS: cefTRIAXone 1,000 MG in SYRINGE 1 EACH IV SCH (09:01)
[2019-11-04] MEDS: PANTOPRAZOLE 40 MG VIAL IV SCH (09:01)
[2019-11-04] MEDS: DEXAMETHASONE 4 MG/1 ML VIAL IV SCH (09:01)
[2019-11-04] MEDS: MENTHOL/ZINC OXIDE OINT 71 GM JAR TOP SCH ×2 (09:02→21:11)
[2019-11-04] MEDS: AMIODARONE 200 MG TABLET PO SCH (09:04)
[2019-11-04] MEDS ORDERED: SODIUM PHOSPHATE INJ 30 MMOL in SODIUM CHLORIDE 0.9% 250 ML IV ONE (17:00)
[2019-11-04] MEDS: ATORVASTATIN 40 MG TABLET PO SCH (21:11)
[2019-11-04] MEDS: DOCUSATE SODIUM 100 MG/10 ML UDCUP PO PRN (21:11)
[2019-11-05] MEDS: INSULIN REGULAR 100 UNIT/ML SUBCUT SCH ×4 (00:08→18:30)
[2019-11-05 04:04] LABS: ABG Base Excess 0.7 MMOL/L (-2.5-2.5); ABG HCO3 25.1 MMOL/L (20-26); ABG Oxygen Saturation 99.6 % (95-100); ABG PCO2 34.4 MM HG (35-48); ABG PH 7.457 (7.35-7.45); ABG TCO2 22.6 MMOL/L (23-27)
[2019-11-05 05:16] LABS: Basophils % 0.1 % (0.0-0.8); Hematocrit 25.6 VOL% (35.7-47.0); Hemoglobin 8.2 GM/DL (12.0-16.0); Immature Granulocytes % 2.7 %; Immature Granulocytes Absolute 0.25 #; Lymphocytes # 0.2 10*3/uL (1.4-4.0); Mean Corpuscular Volume 93.4 FL (87-102); Mean Platelet Volume 12.7 FL (9.6-12.0); Monocytes % 2.2 % (1.7-12.7); NRBC # 0.43 10*3/uL; Platelet Count 182 T/CUMM (130-400); Red Blood Count 2.74 MC/CUMM (3.8-5.5); Red Cell Distribution Width 20.8 % (9.3-17.3); White Blood Count 9.3 T/CUMM (4-12)
[2019-11-05] MEDS: metroNIDAZOLE INJ 500 MG in PREMIX 1 EACH IV SCH ×3 (05:26→22:55)
[2019-11-05] MEDS: METOCLOPRAMIDE 10 MG/2 ML VIAL IV SCH ×4 (05:27→23:11)
[2019-11-05 05:36] LABS: Hypochromasia 1+; Lymphocytes 5 % (20-55); Microcytosis Slight; Nucleated Red Blood Cells 5 (0-5); Platelet Estimate Adequate; Segmented Neutrophils 94 % (50-85); Total Cells Counted 100
[2019-11-05 06:17] LABS: Calcium 7.7 MG/DL (8.5-10.1); Osmolality,Calculated 297.3 MOS/KG (273-304)
[2019-11-05] MEDS: POTASSIUM CHLORIDE 20 MEQ/15 ML UDCUP PER TUBE SCH ×4 (07:20→13:32)
[2019-11-05] MEDS ORDERED: MAGNESIUM SULF RIDER 2 GM in PREMIX 1 EACH IV ONE (09:00)
[2019-11-05] MEDS: APIXABAN 5 MG TABLET PO SCH ×2 (09:15→20:26)
[2019-11-05] MEDS: DEXAMETHASONE 4 MG/1 ML VIAL IV SCH (09:15)
[2019-11-05] MEDS: MENTHOL/ZINC OXIDE OINT 71 GM JAR TOP SCH ×2 (09:15→20:28)
[2019-11-05] MEDS: PANTOPRAZOLE 40 MG VIAL IV SCH (09:15)
[2019-11-05] MEDS: LEVOTHYROXINE 50 MCG TABLET PO SCH (09:15)
[2019-11-05] MEDS: ASCORBIC ACID 500 MG TABLET PO SCH ×2 (09:15→20:25)
[2019-11-05] MEDS: ASPIRIN CHEW 81 MG TABLET PO SCH (09:15)
[2019-11-05] MEDS: cefTRIAXone 1,000 MG in SYRINGE 1 EACH IV SCH (09:15)
[2019-11-05] MEDS: FERROUS SULFATE 325 MG TABLET PO SCH ×2 (09:15→20:25)
[2019-11-05] MEDS: POTASSIUM CHLORIDE 20 MEQ/15 ML UDCUP PER TUBE PRN ×2 (09:15→10:00)
[2019-11-05] MEDS: AMIODARONE 200 MG TABLET PO SCH (09:15)
[2019-11-05] MEDS: POLYETHYLENE GLYCOL POWDER 17 GM PACK PO SCH (09:59)
[2019-11-05] MEDS: DOCUSATE SODIUM 100 MG/10 ML UDCUP PO PRN (20:25)
[2019-11-05] MEDS: ATORVASTATIN 40 MG TABLET PO SCH (20:26)
[2019-11-06 03:34] LABS: ABG Base Excess -1.2 MMOL/L (-2.5-2.5); ABG HCO3 23.4 MMOL/L (20-26); ABG Oxygen Saturation 99.1 % (95-100); ABG PCO2 37.1 MM HG (35-48); ABG PH 7.405 (7.35-7.45); ABG TCO2 21.3 MMOL/L (23-27); Allen Test Positive; Pt O2 Delivery Device Ventilator
[2019-11-06] MEDS: INSULIN REGULAR 100 UNIT/ML SUBCUT SCH ×5 (04:23→23:50)
[2019-11-06 05:29] LABS: Eosinophils % 0.1 % (0.00-10.9); Hematocrit 23.2 VOL% (35.7-47.0); Hemoglobin 7.5 GM/DL (12.0-16.0); Immature Granulocytes % 4.8 %; Immature Granulocytes Absolute 0.45 #; Lymphocytes # 0.4 10*3/uL (1.4-4.0); Lymphocytes % 3.8 % (21.3-54.2); Mean Corpuscular HGB Conc 32.3 GM/DL (32-36); Mean Corpuscular Volume 93.5 FL (87-102); Mean Platelet Volume 12.5 FL (9.6-12.0); Monocytes % 2.7 % (1.7-12.7); NRBC # 0.17 10*3/uL; Neutrophils % 88.6 % (38.7-73.9); Platelet Count 180 T/CUMM (130-400); Red Blood Count 2.48 MC/CUMM (3.8-5.5); Red Cell Distribution Width 21.4 % (9.3-17.3); White Blood Count 9.3 T/CUMM (4-12)
[2019-11-06 05:51] LABS: Hypochromasia 1+; Lymphocytes 3 % (20-55); Nucleated Red Blood Cells 1 (0-5); Platelet Estimate Adequate; Segmented Neutrophils 94 % (50-85); Total Cells Counted 100
[2019-11-06 05:52] LABS: Microcytosis Slight
[2019-11-06 05:53] LABS: Albumin 1.6 G/DL (3.4-5.0); Calcium 7.9 MG/DL (8.5-10.1); Osmolality,Calculated 308.3 MOS/KG (273-304)
[2019-11-06] MEDS: metroNIDAZOLE INJ 500 MG in PREMIX 1 EACH IV SCH (05:56)
[2019-11-06] MEDS: METOCLOPRAMIDE 10 MG/2 ML VIAL IV SCH ×3 (05:56→17:25)
[2019-11-06] MEDS: POTASSIUM CHLORIDE 20 MEQ/15 ML UDCUP PER TUBE PRN ×4 (06:18→17:25)
[2019-11-06 06:45] LABS: Free T4 (Free Thyroxine) 0.83 NG/DL (0.76-1.46); Thyroid Stimulating Hormone 4.02 uIU/ml (0.358-3.74)
[2019-11-06] MEDS ORDERED: POTASSIUM PHOSPHATE 30 MMOL in SODIUM CHLORIDE 0.9% 250 ML IV ONE (07:52)
[2019-11-06] MEDS: POLYETHYLENE GLYCOL POWDER 17 GM PACK PO SCH (08:01)
[2019-11-06] MEDS: PANTOPRAZOLE 40 MG VIAL IV SCH (08:01)
[2019-11-06] MEDS: ASPIRIN CHEW 81 MG TABLET PO SCH (08:01)
[2019-11-06] MEDS: MENTHOL/ZINC OXIDE OINT 71 GM JAR TOP SCH ×2 (08:01→20:54)
[2019-11-06] MEDS: DEXAMETHASONE 4 MG/1 ML VIAL IV SCH (08:01)
[2019-11-06] MEDS: APIXABAN 5 MG TABLET PO SCH ×2 (08:01→20:54)
[2019-11-06] MEDS: ASCORBIC ACID 500 MG TABLET PO SCH ×2 (08:01→20:54)
[2019-11-06] MEDS: LEVOTHYROXINE 50 MCG TABLET PO SCH (08:01)
[2019-11-06] MEDS: FERROUS SULFATE 325 MG TABLET PO SCH ×2 (08:01→20:54)
[2019-11-06] MEDS: AMIODARONE 200 MG TABLET PO SCH (08:01)
[2019-11-06] MEDS: CLINDAMYCIN INJ 300 MG in PREMIX 1 EACH IV SCH ×3 (12:03→23:20)
[2019-11-06] MEDS ORDERED: ALBUMIN 25% 50 GM in PREMIX 1 EACH IV ONE (12:42)
[2019-11-06] MEDS ORDERED: NOREPINEPHRINE 8 MG in SODIUM CHLORIDE 0.9% 242 ML IV PRN (12:43)
[2019-11-06] MEDS ORDERED: SODIUM CHLORIDE 0.9% 250 ML IV ONE (12:43)
[2019-11-06] MEDS: ATORVASTATIN 40 MG TABLET PO SCH (20:54)
[2019-11-07] MEDS: METOCLOPRAMIDE 10 MG/2 ML VIAL IV SCH ×4 (00:20→18:33)
[2019-11-07 04:48] LABS: Basophils % 0.1 % (0.0-0.8); Eosinophils % 0.5 % (0.00-10.9); Hematocrit 20.9 VOL% (35.7-47.0); Hemoglobin 6.8 GM/DL (12.0-16.0); Immature Granulocytes % 5.7 %; Immature Granulocytes Absolute 0.44 #; Lymphocytes # 0.4 10*3/uL (1.4-4.0); Lymphocytes % 5.6 % (21.3-54.2); Mean Corpuscular HGB Conc 32.5 GM/DL (32-36); Mean Corpuscular Volume 95.9 FL (87-102); Mean Platelet Volume 13.4 FL (9.6-12.0); Monocytes % 2.2 % (1.7-12.7); NRBC # 0.13 10*3/uL; Neutrophils % 85.9 % (38.7-73.9); Platelet Count 186 T/CUMM (130-400); Red Blood Count 2.18 MC/CUMM (3.8-5.5); Red Cell Distribution Width 22.1 % (9.3-17.3); White Blood Count 7.7 T/CUMM (4-12)
[2019-11-07 04:55] LABS: Calcium 7.7 MG/DL (8.5-10.1); Osmolality,Calculated 294.4 MOS/KG (273-304)
[2019-11-07 05:09] LABS: ABG Base Excess 0.5 MMOL/L (-2.5-2.5); ABG HCO3 23.7 MMOL/L (20-26); ABG Oxygen Saturation 98.7 % (95-100); ABG PCO2 31.5 MM HG (35-48); ABG PH 7.494 (7.35-7.45); ABG PO2 147.9 MM HG (80-95); ABG TCO2 24.7 MMOL/L (23-27); Allen Test Positive; Pt O2 Delivery Device Ventilator
[2019-11-07 05:11] LABS: Band Neutrophils 3 % (0-10); Hypochromasia 1+; Lymphocytes 5 % (20-55); Nucleated Red Blood Cells 1 (0-5); Ovalocytes Slight; Platelet Estimate Adequate; Segmented Neutrophils 92 % (50-85); Total Cells Counted 100
[2019-11-07 05:12] LABS: Acanthocytes Few; Microcytosis Slight
[2019-11-07] MEDS: CLINDAMYCIN INJ 300 MG in PREMIX 1 EACH IV SCH ×4 (05:15→23:00)
[2019-11-07] MEDS: INSULIN REGULAR 100 UNIT/ML SUBCUT SCH ×3 (05:55→18:30)
[2019-11-07] MEDS ORDERED: SODIUM CHLORIDE 0.9% 1,000 ML IV PRN (07:33)
[2019-11-07] MEDS: APIXABAN 5 MG TABLET PO SCH (08:55)
[2019-11-07] MEDS: ASCORBIC ACID 500 MG TABLET PO SCH ×2 (09:00→20:59)
[2019-11-07] MEDS: AMIODARONE 200 MG TABLET PO SCH (09:00)
[2019-11-07] MEDS: DEXAMETHASONE 4 MG/1 ML VIAL IV SCH (09:00)
[2019-11-07] MEDS: ASPIRIN CHEW 81 MG TABLET PO SCH (09:00)
[2019-11-07] MEDS: FERROUS SULFATE 325 MG TABLET PO SCH ×2 (09:00→20:59)
[2019-11-07] MEDS: PANTOPRAZOLE 40 MG VIAL IV SCH (09:00)
[2019-11-07] MEDS: MENTHOL/ZINC OXIDE OINT 71 GM JAR TOP SCH ×2 (09:00→20:59)
[2019-11-07] MEDS: POLYETHYLENE GLYCOL POWDER 17 GM PACK PO SCH (09:00)
[2019-11-07] MEDS: LEVOTHYROXINE 50 MCG TABLET PO SCH (09:00)
[2019-11-07] MEDS ORDERED: POTASSIUM CHLORIDE 20 MEQ/15 ML UDCUP PO ONE (09:14)
[2019-11-07] MEDS ORDERED: EPOETIN ALFA-EPBX 10,000 UNIT/ML VIAL IV PRN (17:08)
[2019-11-07] MEDS: ATORVASTATIN 40 MG TABLET PO SCH (20:59)
[2019-11-07] MEDS: APIXABAN 2.5 MG TABLET PO SCH (20:59)
[2019-11-08] MEDS: METOCLOPRAMIDE 10 MG/2 ML VIAL IV SCH ×4 (00:07→18:10)
[2019-11-08] MEDS: INSULIN REGULAR 100 UNIT/ML SUBCUT SCH ×4 (00:08→18:10)
[2019-11-08 04:28] LABS: ABG Base Excess -1.3 MMOL/L (-2.5-2.5); ABG HCO3 22.4 MMOL/L (20-26); ABG Oxygen Saturation 98.1 % (95-100); ABG PCO2 33.2 MM HG (35-48); ABG PH 7.447 (7.35-7.45); ABG PO2 118.4 MM HG (80-95); ABG TCO2 23.4 MMOL/L (23-27); Allen Test Positive; Pt O2 Delivery Device Ventilator
[2019-11-08] MEDS: CLINDAMYCIN INJ 300 MG in PREMIX 1 EACH IV SCH ×4 (04:53→22:00)
[2019-11-08 05:38] LABS: Basophils % 0.1 % (0.0-0.8); Eosinophils % 0.4 % (0.00-10.9); Hematocrit 22.2 VOL% (35.7-47.0); Immature Granulocytes % 5.8 %; Immature Granulocytes Absolute 0.48 #; Lymphocytes # 0.5 10*3/uL (1.4-4.0); Lymphocytes % 5.4 % (21.3-54.2); Mean Corpuscular HGB Conc 32.4 GM/DL (32-36); Mean Corpuscular Volume 92.9 FL (87-102); Mean Platelet Volume 12.5 FL (9.6-12.0); Monocytes % 3.5 % (1.7-12.7); NRBC # 0.05 10*3/uL; Neutrophils % 84.8 % (38.7-73.9); Red Blood Count 2.39 MC/CUMM (3.8-5.5); Red Cell Distribution Width 22.3 % (9.3-17.3); White Blood Count 8.3 T/CUMM (4-12)
[2019-11-08 05:39] LABS: Hemoglobin 7.2 GM/DL (12.0-16.0); Platelet Count 161 T/CUMM (130-400)
[2019-11-08 05:50] LABS: Calcium 7.9 MG/DL (8.5-10.1); Osmolality,Calculated 300.4 MOS/KG (273-304)
[2019-11-08 06:45] LABS: Band Neutrophils 3 % (0-10); Eosinophils 1 % (0-10); Hypochromasia 1+; Lymphocytes 9 % (20-55); Platelet Estimate Adequate; Segmented Neutrophils 87 % (50-85); Total Cells Counted 100
[2019-11-08 06:46] LABS: Microcytosis Slight
[2019-11-08] MEDS ORDERED: SODIUM CHLORIDE 0.9% 1,000 ML IV PRN (08:00)
[2019-11-08] MEDS: ASCORBIC ACID 500 MG TABLET PO SCH ×2 (08:30→21:00)
[2019-11-08] MEDS: LEVOTHYROXINE 50 MCG TABLET PO SCH (08:30)
[2019-11-08] MEDS: ASPIRIN CHEW 81 MG TABLET PO SCH (08:30)
[2019-11-08] MEDS: AMIODARONE 200 MG TABLET PO SCH (08:30)
[2019-11-08] MEDS: APIXABAN 2.5 MG TABLET PO SCH ×2 (08:31→21:00)
[2019-11-08] MEDS: FERROUS SULFATE 325 MG TABLET PO SCH ×2 (08:31→21:00)
[2019-11-08] MEDS: POLYETHYLENE GLYCOL POWDER 17 GM PACK PO SCH (08:31)
[2019-11-08] MEDS: MENTHOL/ZINC OXIDE OINT 71 GM JAR TOP SCH ×2 (08:31→21:00)
[2019-11-08] MEDS: PANTOPRAZOLE 40 MG VIAL IV SCH (09:26)
[2019-11-08] MEDS: DEXAMETHASONE 4 MG/1 ML VIAL IV SCH (09:35)
[2019-11-08] MEDS: ATORVASTATIN 40 MG TABLET PO SCH (21:00)
[2019-11-09] MEDS: METOCLOPRAMIDE 10 MG/2 ML VIAL IV SCH ×4 (00:48→18:33)
[2019-11-09] MEDS: INSULIN REGULAR 100 UNIT/ML SUBCUT SCH ×4 (00:48→18:32)
[2019-11-09] MEDS: CLINDAMYCIN INJ 300 MG in PREMIX 1 EACH IV SCH ×4 (03:56→21:00)
[2019-11-09 04:27] LABS: ABG Base Excess 2.3 MMOL/L (-2.5-2.5); ABG HCO3 26.5 MMOL/L (20-26); ABG Oxygen Saturation 99.7 % (95-100); ABG PCO2 34.4 MM HG (35-48); ABG TCO2 23.2 MMOL/L (23-27); Allen Test Positive; Pt O2 Delivery Device Ventilator
[2019-11-09] MEDS: PANTOPRAZOLE 40 MG VIAL IV SCH (09:37)
[2019-11-09] MEDS: DEXAMETHASONE 4 MG/1 ML VIAL IV SCH (09:37)
[2019-11-09] MEDS: APIXABAN 2.5 MG TABLET PO SCH ×2 (09:38→21:00)
[2019-11-09] MEDS: POLYETHYLENE GLYCOL POWDER 17 GM PACK PO SCH (09:38)
[2019-11-09] MEDS: ASCORBIC ACID 500 MG TABLET PO SCH ×2 (09:38→21:00)
[2019-11-09] MEDS: LEVOTHYROXINE 50 MCG TABLET PO SCH (09:38)
[2019-11-09] MEDS: AMIODARONE 200 MG TABLET PO SCH (09:38)
[2019-11-09] MEDS: MENTHOL/ZINC OXIDE OINT 71 GM JAR TOP SCH ×2 (09:38→21:00)
[2019-11-09] MEDS: FERROUS SULFATE 325 MG TABLET PO SCH ×2 (09:38→21:00)
[2019-11-09] MEDS: ASPIRIN CHEW 81 MG TABLET PO SCH (09:38)
[2019-11-09 10:40] LABS: Basophils % 0.3 % (0.0-0.8); Eosinophils % 0.4 % (0.00-10.9); Hematocrit 30.6 VOL% (35.7-47.0); Immature Granulocytes % 5.4 %; Immature Granulocytes Absolute 0.51 #; Lymphocytes # 0.7 10*3/uL (1.4-4.0); Lymphocytes % 7.8 % (21.3-54.2); Mean Corpuscular HGB Conc 32.7 GM/DL (32-36); Mean Platelet Volume 12.9 FL (9.6-12.0); NRBC # 0.03 10*3/uL; Neutrophils % 82.1 % (38.7-73.9); Platelet Count 192 T/CUMM (130-400); Red Cell Distribution Width 21.3 % (9.3-17.3); White Blood Count 9.4 T/CUMM (4-12)
[2019-11-09 10:45] LABS: Red Blood Count 3.44 MC/CUMM (3.8-5.5)
[2019-11-09 11:07] LABS: Calcium 8.4 MG/DL (8.5-10.1); Osmolality,Calculated 291.7 MOS/KG (273-304)
[2019-11-09 11:37] LABS: Band Neutrophils 2 % (0-10); Eosinophils 3 % (0-10); Hypochromasia 1+; Lymphocytes 6 % (20-55); Microcytosis 1+; Segmented Neutrophils 85 % (50-85); Total Cells Counted 100
[2019-11-09 11:38] LABS: Ovalocytes Slight
[2019-11-09 11:44] LABS: Pt O2 Delivery Device Ventilator
[2019-11-09 11:46] LABS: ABG Base Excess 0.7 MMOL/L (-2.5-2.5); ABG HCO3 24.1 MMOL/L (20-26); ABG Oxygen Saturation 98.3 % (95-100); ABG PCO2 34.2 MM HG (35-48); ABG PH 7.466 (7.35-7.45); ABG PO2 128.6 MM HG (80-95); ABG TCO2 25.2 MMOL/L (23-27)
[2019-11-09] MEDS ORDERED: MAGNESIUM SULF RIDER 2 GM in PREMIX 1 EACH IV ONE (12:15)
[2019-11-09] MEDS: POTASSIUM CHLORIDE 20 MEQ/15 ML UDCUP PER TUBE PRN ×3 (14:21→18:33)
[2019-11-09] MEDS: ATORVASTATIN 40 MG TABLET PO SCH (21:00)
[2019-11-10] MEDS: METOCLOPRAMIDE 10 MG/2 ML VIAL IV SCH ×4 (01:13→18:55)
[2019-11-10] MEDS: INSULIN REGULAR 100 UNIT/ML SUBCUT SCH ×4 (01:13→18:55)
[2019-11-10 03:40] LABS: ABG Base Excess -0.3 MMOL/L (-2.5-2.5); ABG HCO3 24.2 MMOL/L (20-26); ABG Oxygen Saturation 98.6 % (95-100); ABG PH 7.444 (7.35-7.45); ABG TCO2 21.2 MMOL/L (23-27)
[2019-11-10 04:18] LABS: Basophils % 0.1 % (0.0-0.8); Eosinophils % 0.1 % (0.00-10.9); Hematocrit 28.2 VOL% (35.7-47.0); Hemoglobin 9.2 GM/DL (12.0-16.0); Immature Granulocytes % 4.1 %; Immature Granulocytes Absolute 0.39 #; Lymphocytes # 0.5 10*3/uL (1.4-4.0); Lymphocytes % 4.9 % (21.3-54.2); Mean Corpuscular HGB Conc 32.6 GM/DL (32-36); Mean Corpuscular Volume 90.1 FL (87-102); Mean Platelet Volume 12.6 FL (9.6-12.0); Monocytes % 4.7 % (1.7-12.7); NRBC # 0.03 10*3/uL; Neutrophils % 86.1 % (38.7-73.9); Platelet Count 202 T/CUMM (130-400); Red Blood Count 3.13 MC/CUMM (3.8-5.5); Red Cell Distribution Width 21.4 % (9.3-17.3); White Blood Count 9.6 T/CUMM (4-12)
[2019-11-10] MEDS: CLINDAMYCIN INJ 300 MG in PREMIX 1 EACH IV SCH ×3 (04:30→21:00)
[2019-11-10 04:41] LABS: Albumin 1.9 G/DL (3.4-5.0); Bilirubin,Total 0.6 MG/DL (0.2-1.0); Calcium 8.8 MG/DL (8.5-10.1); Osmolality,Calculated 296.8 MOS/KG (273-304); Total Protein 5.3 G/DL (6.4-8.3)
[2019-11-10 05:07] LABS: Band Neutrophils 1 % (0-10); Lymphocytes 6 % (20-55); Segmented Neutrophils 87 % (50-85); Total Cells Counted 100
[2019-11-10 05:08] LABS: Acanthocytes 1+; Anisocytosis 1+; Ovalocytes 1+
[2019-11-10 05:09] LABS: Platelet Estimate Normal
[2019-11-10] MEDS: LEVOTHYROXINE 50 MCG TABLET PO SCH (08:55)
[2019-11-10] MEDS: AMIODARONE 200 MG TABLET PO SCH (08:56)
[2019-11-10] MEDS: ASCORBIC ACID 500 MG TABLET PO SCH ×2 (08:56→21:00)
[2019-11-10] MEDS: APIXABAN 2.5 MG TABLET PO SCH ×2 (08:56→21:00)
[2019-11-10] MEDS: ASPIRIN CHEW 81 MG TABLET PO SCH (08:56)
[2019-11-10] MEDS: FERROUS SULFATE 325 MG TABLET PO SCH ×2 (08:56→21:00)
[2019-11-10] MEDS: POLYETHYLENE GLYCOL POWDER 17 GM PACK PO SCH (08:58)
[2019-11-10] MEDS: MENTHOL/ZINC OXIDE OINT 71 GM JAR TOP SCH ×2 (08:58→21:00)
[2019-11-10] MEDS: PANTOPRAZOLE 40 MG VIAL IV SCH (08:59)
[2019-11-10] MEDS: DEXAMETHASONE 4 MG/1 ML VIAL IV SCH (09:02)
[2019-11-10] MEDS: ATORVASTATIN 40 MG TABLET PO SCH (21:00)
[2019-11-11] MEDS: INSULIN REGULAR 100 UNIT/ML SUBCUT SCH ×4 (00:25→17:17)
[2019-11-11] MEDS: METOCLOPRAMIDE 10 MG/2 ML VIAL IV SCH ×4 (00:25→17:17)
[2019-11-11] MEDS: CLINDAMYCIN INJ 300 MG in PREMIX 1 EACH IV SCH ×4 (01:42→19:21)
[2019-11-11 04:38] LABS: Basophils % 0.2 % (0.0-0.8); Eosinophils % 0.2 % (0.00-10.9); Hematocrit 26.1 VOL% (35.7-47.0); Hemoglobin 8.4 GM/DL (12.0-16.0); Immature Granulocytes % 4.8 %; Lymphocytes # 0.7 10*3/uL (1.4-4.0); Lymphocytes % 5.9 % (21.3-54.2); Mean Corpuscular HGB Conc 32.2 GM/DL (32-36); Mean Corpuscular Volume 90.3 FL (87-102); Mean Platelet Volume 12.3 FL (9.6-12.0); Monocytes % 4.9 % (1.7-12.7); Platelet Count 221 T/CUMM (130-400); Red Blood Count 2.89 MC/CUMM (3.8-5.5); Red Cell Distribution Width 21.1 % (9.3-17.3); White Blood Count 12.5 T/CUMM (4-12)
[2019-11-11 04:59] LABS: Albumin 1.9 G/DL (3.4-5.0); Bilirubin,Total 0.5 MG/DL (0.2-1.0); Calcium 9.2 MG/DL (8.5-10.1); Osmolality,Calculated 311.7 MOS/KG (273-304); Total Protein 5.4 G/DL (6.4-8.3)
[2019-11-11 05:02] LABS: Allen Test Positive; Pt O2 Delivery Device Venturi Mask
[2019-11-11 05:03] LABS: ABG Base Excess -2.9 MMOL/L (-2.5-2.5); ABG HCO3 21.9 MMOL/L (20-26); ABG Oxygen Saturation 97.3 % (95-100); ABG PCO2 33.1 MM HG (35-48); ABG PH 7.412 (7.35-7.45); ABG PO2 83.5 MM HG (80-95); ABG TCO2 19.5 MMOL/L (23-27)
[2019-11-11 06:57] LABS: Anisocytosis 3+; Band Neutrophils 1 % (0-10); Lymphocytes 6 % (20-55); Metamyelocytes 1 %; Microcytosis 1+; Poikilocytosis 2+; Segmented Neutrophils 91 % (50-85); Total Cells Counted 100
[2019-11-11 06:58] LABS: Acanthocytes Few; Atypical Lymphocytes Few; Macrocytosis 1+; Polychromasia Slight
[2019-11-11 06:59] LABS: Ovalocytes Few; Platelet Estimate Normal; Schistocytes Few
[2019-11-11] MEDS: ASCORBIC ACID 500 MG TABLET PO SCH ×2 (08:24→21:25)
[2019-11-11] MEDS: ASPIRIN CHEW 81 MG TABLET PO SCH (08:24)
[2019-11-11] MEDS: amLODIPine 5 MG TABLET PO SCH (08:24)
[2019-11-11] MEDS: LEVOTHYROXINE 50 MCG TABLET PO SCH (08:25)
[2019-11-11] MEDS: AMIODARONE 200 MG TABLET PO SCH (08:25)
[2019-11-11] MEDS: APIXABAN 2.5 MG TABLET PO SCH ×2 (08:25→21:24)
[2019-11-11] MEDS: POLYETHYLENE GLYCOL POWDER 17 GM PACK PO SCH (08:25)
[2019-11-11] MEDS: FERROUS SULFATE 325 MG TABLET PO SCH ×2 (08:25→21:24)
[2019-11-11] MEDS: PANTOPRAZOLE 40 MG VIAL IV SCH (08:25)
[2019-11-11] MEDS: MENTHOL/ZINC OXIDE OINT 71 GM JAR TOP SCH ×2 (08:26→21:24)
[2019-11-11] MEDS: carvediloL 6.25 MG TABLET PO SCH ×2 (09:34→21:24)
[2019-11-11] MEDS: dilTIAZem Drip 125 MG/125 ML PREMIX IV SCH (11:44)
[2019-11-11] MEDS: ATORVASTATIN 40 MG TABLET PO SCH (21:24)
[2019-11-12] MEDS: INSULIN REGULAR 100 UNIT/ML SUBCUT SCH ×4 (00:14→17:52)
[2019-11-12] MEDS: METOCLOPRAMIDE 10 MG/2 ML VIAL IV SCH ×4 (00:15→17:14)
[2019-11-12] MEDS: CLINDAMYCIN INJ 300 MG in PREMIX 1 EACH IV SCH ×4 (01:30→22:01)
[2019-11-12 04:55] LABS: Alanine Aminotransferase 63 U/L (13-56); Albumin 1.8 G/DL (3.4-5.0); Alkaline Phosphatase 158 U/L (45-117); Aspartate Amino Transferase 61 U/L (0-37); Bilirubin,Total < 0.39 MG/DL (0.2-1.0); Blood Urea Nitrogen 76 MG/DL (7-18); Calcium 8.2 MG/DL (8.5-10.1); Estimated Glom Filtration Rate 42 ML/MIN; Glucose 118 MG/DL (74-106); Osmolality,Calculated 306.1 MOS/KG (273-304)
[2019-11-12 06:13] LABS: ABG Base Excess -1.5 MMOL/L (-2.5-2.5); ABG Oxygen Saturation 95.3 % (95-100); ABG PCO2 37.1 MM HG (35-48); ABG PO2 85.2 MM HG (80-95); ABG TCO2 24.1 MMOL/L (23-27)
[2019-11-12] MEDS: dilTIAZem Drip 125 MG/125 ML PREMIX IV SCH ×2 (06:41→13:56)
[2019-11-12] MEDS: POLYETHYLENE GLYCOL POWDER 17 GM PACK PO SCH (08:24)
[2019-11-12] MEDS: ASPIRIN CHEW 81 MG TABLET PO SCH (08:24)
[2019-11-12] MEDS: AMIODARONE 200 MG TABLET PO SCH (08:24)
[2019-11-12] MEDS: FERROUS SULFATE 325 MG TABLET PO SCH ×2 (08:24→22:02)
[2019-11-12] MEDS: APIXABAN 2.5 MG TABLET PO SCH (08:24)
[2019-11-12] MEDS: carvediloL 6.25 MG TABLET PO SCH (08:24)
[2019-11-12] MEDS: amLODIPine 5 MG TABLET PO SCH (08:24)
[2019-11-12] MEDS: MENTHOL/ZINC OXIDE OINT 71 GM JAR TOP SCH ×2 (08:24→22:01)
[2019-11-12] MEDS: PANTOPRAZOLE 40 MG VIAL IV SCH (08:25)
[2019-11-12] MEDS: LEVOTHYROXINE 50 MCG TABLET PO SCH (08:25)
[2019-11-12] MEDS ORDERED: carvediloL 6.25 MG TABLET PO ONE (09:46)
[2019-11-12] MEDS: ASCORBIC ACID 500 MG TABLET PO SCH ×2 (10:36→22:02)
[2019-11-12] MEDS: METOPROLOL TARTRATE 25 MG TABLET PO ONE ×2 (10:37→14:38)
[2019-11-12] MEDS ORDERED: ATROPINE 1 MG/10 ML SYRINGE ONE (10:46)
[2019-11-12 10:56] LABS: ABG Base Excess -3.8 MMOL/L (-2.5-2.5); ABG HCO3 21.2 MMOL/L (20-26); ABG Oxygen Saturation 89.1 % (95-100); ABG PCO2 52.3 MM HG (35-48); ABG PH 7.258 (7.35-7.45); ABG PO2 64.8 MM HG (80-95); ABG TCO2 22.4 MMOL/L (23-27)
[2019-11-12] MEDS ORDERED: ATROPINE 1 MG/10 ML SYRINGE IV ONE (11:21)
[2019-11-12 11:29] LABS: Basophils % 0.2 % (0.0-0.8); Eosinophils % 0.3 % (0.00-10.9); Hemoglobin 7.2 GM/DL (12.0-16.0); Immature Granulocytes % 6.3 %; Immature Granulocytes Absolute 0.89 #; Lymphocytes # 0.5 10*3/uL (1.4-4.0); Lymphocytes % 3.5 % (21.3-54.2); Mean Corpuscular HGB Conc 31.3 GM/DL (32-36); Mean Corpuscular Volume 93.5 FL (87-102); Mean Platelet Volume 12.9 FL (9.6-12.0); Monocytes % 4.3 % (1.7-12.7); NRBC # 0.02 10*3/uL; Neutrophils % 85.4 % (38.7-73.9); Platelet Count 192 T/CUMM (130-400); Red Blood Count 2.46 MC/CUMM (3.8-5.5); Red Cell Distribution Width 21.4 % (9.3-17.3)
[2019-11-12] MEDS ORDERED: ETOMIDATE 20 MG/10 ML VIAL IV ONE ×2 (12:05→12:30)
[2019-11-12] MEDS ORDERED: SUCCINYLCHOLINE 200 MG/10 ML VIAL ONE (12:06)
[2019-11-12 12:07] LABS: Band Neutrophils 26 % (0-10); Eosinophils 1 % (0-10); Lymphocytes 6 % (20-55); Segmented Neutrophils 60 % (50-85); Total Cells Counted 100
[2019-11-12] MEDS ORDERED: NOREPINEPHRINE 4 MG/4 ML VIAL IV ONE (12:07)
[2019-11-12 12:08] LABS: Platelet Estimate Normal
[2019-11-12 12:09] LABS: Anisocytosis 2+; Macrocytosis 1+; Poikilocytosis 1+
[2019-11-12 12:10] LABS: Burr Cells Few; Tear Drop Cells Few
[2019-11-12] MEDS ORDERED: SUCCINYLCHOLINE 200 MG/10 ML VIAL IV ONE (12:30)
[2019-11-12] MEDS: NOREPINEPHRINE 8 MG in SODIUM CHLORIDE 0.9% 242 ML IV PRN (12:45)
[2019-11-12 13:39] LABS: ABG Base Excess -2.8 MMOL/L (-2.5-2.5); ABG HCO3 22.1 MMOL/L (20-26); ABG PCO2 43.1 MM HG (35-48); ABG PH 7.335 (7.35-7.45); ABG TCO2 21.4 MMOL/L (23-27)
[2019-11-12] MEDS: ATORVASTATIN 40 MG TABLET PO SCH (22:02)
[2019-11-12] MEDS: METOPROLOL TARTRATE 25 MG TABLET PO SCH (22:02)
[2019-11-13] MEDS: INSULIN REGULAR 100 UNIT/ML SUBCUT SCH ×4 (00:22→17:29)
[2019-11-13] MEDS: METOCLOPRAMIDE 10 MG/2 ML VIAL IV SCH ×4 (01:30→18:12)
[2019-11-13] MEDS: CLINDAMYCIN INJ 300 MG in PREMIX 1 EACH IV SCH ×3 (02:00→16:45)
[2019-11-13] MEDS: NOREPINEPHRINE 8 MG in SODIUM CHLORIDE 0.9% 242 ML IV PRN (02:15)
[2019-11-13 04:32] LABS: Basophils # 0.1 10*3/uL (0.0-0.2); Basophils % 0.4 % (0.0-0.8); Eosinophils # 0.1 10*3/uL (0.0-0.87); Eosinophils % 0.7 % (0.00-10.9); Hematocrit 19.6 VOL% (35.7-47.0); Immature Granulocytes % 5.2 %; Immature Granulocytes Absolute 0.82 #; Lymphocytes # 0.7 10*3/uL (1.4-4.0); Lymphocytes % 4.7 % (21.3-54.2); Mean Corpuscular HGB Conc 32.1 GM/DL (32-36); Mean Corpuscular Volume 91.2 FL (87-102); Mean Platelet Volume 12.1 FL (9.6-12.0); Monocytes % 4.2 % (1.7-12.7); NRBC # 0.03 10*3/uL; Neutrophils % 84.8 % (38.7-73.9); Platelet Count 180 T/CUMM (130-400); Red Blood Count 2.15 MC/CUMM (3.8-5.5); Red Cell Distribution Width 21.2 % (9.3-17.3); White Blood Count 15.9 T/CUMM (4-12)
[2019-11-13 04:34] LABS: Hemoglobin 6.3 GM/DL (12.0-16.0)
[2019-11-13 04:49] LABS: Eosinophils 1 % (0-10); Lymphocytes 5 % (20-55); Nucleated Red Blood Cells 1 (0-5); Platelet Estimate Adequate; Segmented Neutrophils 92 % (50-85); Total Cells Counted 100
[2019-11-13 04:50] LABS: Hypochromasia 2+; Microcytosis Slight; Ovalocytes Slight
[2019-11-13 05:05] LABS: Albumin 1.7 G/DL (3.4-5.0); Bilirubin,Total 0.6 MG/DL (0.2-1.0); Calcium 8.3 MG/DL (8.5-10.1); Osmolality,Calculated 310.3 MOS/KG (273-304); Total Protein 4.9 G/DL (6.4-8.3)
[2019-11-13 05:46] LABS: ABG Base Excess -2.8 MMOL/L (-2.5-2.5); ABG HCO3 21.9 MMOL/L (20-26); ABG Oxygen Saturation 80.5 % (95-100); ABG PCO2 40.7 MM HG (35-48); ABG PH 7.351 (7.35-7.45); ABG PO2 47.5 MM HG (80-95); ABG TCO2 21.6 MMOL/L (23-27); Allen Test Positive; Pt O2 Delivery Device Ventilator
[2019-11-13] MEDS ORDERED: SODIUM CHLORIDE 0.9% 1,000 ML IV PRN (08:03)
[2019-11-13] MEDS: METOPROLOL TARTRATE 25 MG TABLET PO SCH ×2 (08:06→20:45)
[2019-11-13] MEDS: ASCORBIC ACID 500 MG TABLET PO SCH ×2 (08:06→20:45)
[2019-11-13] MEDS: LEVOTHYROXINE 50 MCG TABLET PO SCH (08:06)
[2019-11-13] MEDS: FERROUS SULFATE 325 MG TABLET PO SCH ×2 (08:06→20:45)
[2019-11-13] MEDS: ISOSORBIDE DINITRATE 10 MG TABLET PO SCH ×3 (08:07→20:45)
[2019-11-13] MEDS: AMIODARONE 200 MG TABLET PO SCH (08:07)
[2019-11-13] MEDS: ASPIRIN CHEW 81 MG TABLET PO SCH (08:07)
[2019-11-13] MEDS: MENTHOL/ZINC OXIDE OINT 71 GM JAR TOP SCH ×2 (08:07→20:45)
[2019-11-13 08:08] LABS: ABG Base Excess -4.1 MMOL/L (-2.5-2.5); ABG HCO3 20.2 MMOL/L (20-26); ABG PCO2 32.8 MM HG (35-48); ABG PH 7.407 (7.35-7.45); ABG TCO2 21.2 MMOL/L (23-27)
[2019-11-13] MEDS: POLYETHYLENE GLYCOL POWDER 17 GM PACK PO SCH (08:08)
[2019-11-13] MEDS: PANTOPRAZOLE 40 MG VIAL IV SCH ×2 (09:44→20:45)
[2019-11-13] MEDS: hydrALAZINE 25 MG TABLET PO SCH ×3 (09:46→20:45)
[2019-11-13] MEDS ORDERED: POTASSIUM CHLORIDE 20 MEQ/15 ML UDCUP PO ONE (10:22)
[2019-11-13] MEDS: ATORVASTATIN 40 MG TABLET PO SCH (20:45)
[2019-11-14] MEDS: METOCLOPRAMIDE 10 MG/2 ML VIAL IV SCH ×4 (00:32→18:14)
[2019-11-14] MEDS ORDERED: LORazepam 2 MG/1 ML VIAL IV ONE (00:59)
[2019-11-14] MEDS ORDERED: LORazepam 2 MG/1 ML VIAL ONE (01:02)
[2019-11-14 01:25] LABS: Hematocrit 26.3 VOL% (35.7-47.0); Hemoglobin 8.6 GM/DL (12.0-16.0)
[2019-11-14 03:25] LABS: Allen Test Positive; Pt O2 Delivery Device Ventilator
[2019-11-14 03:28] LABS: ABG Base Excess -0.4 MMOL/L (-2.5-2.5); ABG HCO3 24.1 MMOL/L (20-26); ABG Oxygen Saturation 99.5 % (95-100); ABG PCO2 34.7 MM HG (35-48); ABG PH 7.437 (7.35-7.45); ABG TCO2 21.7 MMOL/L (23-27)
[2019-11-14] MEDS: MIDAZOLAM 100 MG in SODIUM CHLORIDE 0.9% 80 ML IV PRN (04:37)
[2019-11-14 04:48] LABS: Basophils # 0.1 10*3/uL (0.0-0.2); Basophils % 0.4 % (0.0-0.8); Eosinophils % 0.2 % (0.00-10.9); Hematocrit 25.5 VOL% (35.7-47.0); Hemoglobin 8.4 GM/DL (12.0-16.0); Immature Granulocytes % 4.7 %; Immature Granulocytes Absolute 0.61 #; Lymphocytes # 0.7 10*3/uL (1.4-4.0); Lymphocytes % 5.1 % (21.3-54.2); Mean Corpuscular HGB Conc 32.9 GM/DL (32-36); Mean Corpuscular Volume 92.1 FL (87-102); Mean Platelet Volume 12.2 FL (9.6-12.0); Monocytes % 4.2 % (1.7-12.7); NRBC # 0.02 10*3/uL; Neutrophils % 85.4 % (38.7-73.9); Platelet Count 146 T/CUMM (130-400); Red Blood Count 2.77 MC/CUMM (3.8-5.5)
[2019-11-14 05:06] LABS: Calcium 8.1 MG/DL (8.5-10.1); Osmolality,Calculated 297.3 MOS/KG (273-304)
[2019-11-14 05:20] LABS: Hypochromasia 2+; Lymphocytes 3 % (20-55); Microcytosis Slight; Nucleated Red Blood Cells 1 (0-5); Platelet Estimate Adequate; Segmented Neutrophils 94 % (50-85); Total Cells Counted 100
[2019-11-14] MEDS: INSULIN REGULAR 100 UNIT/ML SUBCUT SCH ×4 (05:23→17:45)
[2019-11-14] MEDS: POTASSIUM CHLORIDE 20 MEQ/15 ML UDCUP PER TUBE PRN ×2 (05:45→12:27)
[2019-11-14] MEDS ORDERED: POTASSIUM CHLORIDE 20 MEQ TABLET PO ONE (07:23)
[2019-11-14] MEDS: POLYETHYLENE GLYCOL POWDER 17 GM PACK PO SCH (08:23)
[2019-11-14] MEDS: ASCORBIC ACID 500 MG TABLET PO SCH ×2 (08:23→20:10)
[2019-11-14] MEDS: LEVOTHYROXINE 50 MCG TABLET PO SCH (08:24)
[2019-11-14] MEDS: ASPIRIN CHEW 81 MG TABLET PO SCH (08:24)
[2019-11-14] MEDS: FERROUS SULFATE 325 MG TABLET PO SCH ×2 (08:24→20:10)
[2019-11-14] MEDS: AMIODARONE 200 MG TABLET PO SCH (08:25)
[2019-11-14] MEDS: ISOSORBIDE DINITRATE 10 MG TABLET PO SCH ×3 (08:25→20:10)
[2019-11-14] MEDS: METOPROLOL TARTRATE 25 MG TABLET PO SCH ×2 (08:25→20:10)
[2019-11-14] MEDS: MENTHOL/ZINC OXIDE OINT 71 GM JAR TOP SCH ×2 (08:25→20:10)
[2019-11-14] MEDS: PANTOPRAZOLE 40 MG VIAL IV SCH ×2 (08:31→20:10)
[2019-11-14] MEDS: hydrALAZINE 25 MG TABLET PO SCH ×3 (09:28→20:10)
[2019-11-14 09:52] LABS: Hematocrit 25.2 VOL% (35.7-47.0); Hemoglobin 8.2 GM/DL (12.0-16.0)
[2019-11-14 16:55] LABS: Hematocrit 24.5 VOL% (35.7-47.0)
[2019-11-14] MEDS: ATORVASTATIN 40 MG TABLET PO SCH (20:10)
[2019-11-15] MEDS: METOCLOPRAMIDE 10 MG/2 ML VIAL IV SCH ×4 (00:20→17:32)
[2019-11-15] MEDS: INSULIN REGULAR 100 UNIT/ML SUBCUT SCH ×4 (00:20→17:32)
[2019-11-15 03:24] LABS: Basophils % 0.3 % (0.0-0.8); Eosinophils % 0.2 % (0.00-10.9); Hematocrit 24.5 VOL% (35.7-47.0); Hemoglobin 7.9 GM/DL (12.0-16.0); Immature Granulocytes % 4.4 %; Immature Granulocytes Absolute 0.48 #; Lymphocytes # 0.5 10*3/uL (1.4-4.0); Lymphocytes % 4.9 % (21.3-54.2); Mean Corpuscular HGB Conc 32.2 GM/DL (32-36); Mean Corpuscular Volume 92.8 FL (87-102); Mean Platelet Volume 12.8 FL (9.6-12.0); Monocytes % 3.8 % (1.7-12.7); NRBC # 0.03 10*3/uL; Neutrophils % 86.4 % (38.7-73.9); Platelet Count 138 T/CUMM (130-400); Red Blood Count 2.64 MC/CUMM (3.8-5.5); Red Cell Distribution Width 19.8 % (9.3-17.3)
[2019-11-15 03:36] LABS: Calcium 8.8 MG/DL (8.5-10.1); Osmolality,Calculated 302.1 MOS/KG (273-304)
[2019-11-15] MEDS ORDERED: SODIUM CHLORIDE 0.9% 1,000 ML IV PRN (04:17)
[2019-11-15 04:25] LABS: ABG Base Excess -2.3 MMOL/L (-2.5-2.5); ABG HCO3 22.5 MMOL/L (20-26); ABG Oxygen Saturation 99.5 % (95-100); ABG PCO2 35.7 MM HG (35-48); ABG PH 7.399 (7.35-7.45)
[2019-11-15 04:41] LABS: Lymphocytes 7 % (20-55); Metamyelocytes 1 %; Platelet Estimate Decreased; Segmented Neutrophils 90 % (50-85); Total Cells Counted 100
[2019-11-15] MEDS ORDERED: DEXTROSE 10% 250 ML BAG IV ONE (05:50)
[2019-11-15] MEDS: DEXTROSE 50% 25 GM/50 ML VIAL IV PRN ×2 (06:44→07:15)
[2019-11-15] MEDS: hydrALAZINE 25 MG TABLET PO SCH ×3 (08:19→19:56)
[2019-11-15] MEDS: ASPIRIN CHEW 81 MG TABLET PO SCH (08:19)
[2019-11-15] MEDS: ASCORBIC ACID 500 MG TABLET PO SCH ×2 (08:19→19:56)
[2019-11-15] MEDS: FERROUS SULFATE 325 MG TABLET PO SCH ×2 (08:20→19:56)
[2019-11-15] MEDS: LEVOTHYROXINE 50 MCG TABLET PO SCH (08:20)
[2019-11-15] MEDS: POLYETHYLENE GLYCOL POWDER 17 GM PACK PO SCH (08:20)
[2019-11-15] MEDS: METOPROLOL TARTRATE 25 MG TABLET PO SCH ×2 (08:20→19:56)
[2019-11-15] MEDS: PANTOPRAZOLE 40 MG VIAL IV SCH ×2 (08:20→19:56)
[2019-11-15] MEDS: AMIODARONE 200 MG TABLET PO SCH (08:20)
[2019-11-15] MEDS: ISOSORBIDE DINITRATE 10 MG TABLET PO SCH ×3 (08:20→19:56)
[2019-11-15] MEDS: MENTHOL/ZINC OXIDE OINT 71 GM JAR TOP SCH ×2 (08:21→19:56)
[2019-11-15] MEDS ORDERED: PNEUMOCOCCAL VACCINE (13 VALENT) 0.5 ML SYRINGE IM ONE (12:00)
[2019-11-15] MEDS: DEXTROSE 5% NACL 0.45% 1,000 ML IV SCH (17:32)
[2019-11-15] MEDS: ATORVASTATIN 40 MG TABLET PO SCH (19:56)
[2019-11-16] MEDS: METOCLOPRAMIDE 10 MG/2 ML VIAL IV SCH ×4 (00:15→17:51)
[2019-11-16] MEDS: INSULIN REGULAR 100 UNIT/ML SUBCUT SCH ×4 (00:15→17:52)
[2019-11-16] MEDS: dilTIAZem Drip 125 MG/125 ML PREMIX IV SCH ×2 (01:54→12:29)
[2019-11-16 04:42] LABS: Basophils # 0.1 10*3/uL (0.0-0.2); Basophils % 0.5 % (0.0-0.8); Eosinophils % 0.4 % (0.00-10.9); Hematocrit 32.9 VOL% (35.7-47.0); Hemoglobin 10.7 GM/DL (12.0-16.0); Immature Granulocytes % 3.1 %; Immature Granulocytes Absolute 0.35 #; Lymphocytes # 0.6 10*3/uL (1.4-4.0); Lymphocytes % 4.9 % (21.3-54.2); Mean Corpuscular HGB Conc 32.5 GM/DL (32-36); Mean Corpuscular Volume 92.2 FL (87-102); Mean Platelet Volume 12.1 FL (9.6-12.0); Monocytes % 4.1 % (1.7-12.7); Platelet Count 136 T/CUMM (130-400); Red Blood Count 3.57 MC/CUMM (3.8-5.5); Red Cell Distribution Width 18.5 % (9.3-17.3); White Blood Count 11.4 T/CUMM (4-12)
[2019-11-16 05:13] LABS: ABG Base Excess 1.1 MMOL/L (-2.5-2.5); ABG HCO3 25.4 MMOL/L (20-26); ABG Oxygen Saturation 99.4 % (95-100); ABG PCO2 37.1 MM HG (35-48); ABG PH 7.438 (7.35-7.45); ABG TCO2 22.1 MMOL/L (23-27); Allen Test Positive; Pt O2 Delivery Device Ventilator
[2019-11-16 05:20] LABS: Calcium 8.3 MG/DL (8.5-10.1); Osmolality,Calculated 289.7 MOS/KG (273-304)
[2019-11-16 06:06] LABS: Band Neutrophils 1 % (0-10); Lymphocytes 3 % (20-55); Segmented Neutrophils 94 % (50-85); Total Cells Counted 100
[2019-11-16 06:07] LABS: Anisocytosis 1+; Ovalocytes 1+; Platelet Estimate Adequate
[2019-11-16] MEDS: POTASSIUM CHLORIDE 20 MEQ/15 ML UDCUP PER TUBE PRN ×3 (06:10→15:35)
[2019-11-16] MEDS: MIDAZOLAM 100 MG in SODIUM CHLORIDE 0.9% 80 ML IV PRN (06:25)
[2019-11-16] MEDS: PANTOPRAZOLE 40 MG VIAL IV SCH ×2 (08:20→21:08)
[2019-11-16] MEDS: LEVOTHYROXINE 50 MCG TABLET PO SCH (08:21)
[2019-11-16] MEDS: ASCORBIC ACID 500 MG TABLET PO SCH ×2 (08:21→21:08)
[2019-11-16] MEDS: FERROUS SULFATE 325 MG TABLET PO SCH ×2 (08:21→21:08)
[2019-11-16] MEDS: hydrALAZINE 25 MG TABLET PO SCH ×3 (08:21→15:34)
[2019-11-16] MEDS: ASPIRIN CHEW 81 MG TABLET PO SCH (08:21)
[2019-11-16] MEDS: MENTHOL/ZINC OXIDE OINT 71 GM JAR TOP SCH (08:22)
[2019-11-16] MEDS: AMIODARONE 200 MG TABLET PO SCH (08:22)
[2019-11-16] MEDS: ISOSORBIDE DINITRATE 10 MG TABLET PO SCH ×3 (08:23→21:08)
[2019-11-16] MEDS: POLYETHYLENE GLYCOL POWDER 17 GM PACK PO SCH (08:23)
[2019-11-16] MEDS: METOPROLOL TARTRATE 25 MG TABLET PO SCH ×3 (08:25→21:09)
[2019-11-16] MEDS: DEXTROSE 5% NACL 0.45% 1,000 ML IV SCH (14:14)
[2019-11-16] MEDS: ATORVASTATIN 40 MG TABLET PO SCH (21:08)
[2019-11-17] MEDS: MENTHOL/ZINC OXIDE OINT 71 GM JAR TOP SCH ×3 (00:32→20:37)
[2019-11-17] MEDS: hydrALAZINE 25 MG TABLET PO SCH ×5 (00:32→21:38)
[2019-11-17] MEDS: INSULIN REGULAR 100 UNIT/ML SUBCUT SCH ×4 (01:08→17:19)
[2019-11-17] MEDS: METOCLOPRAMIDE 10 MG/2 ML VIAL IV SCH ×5 (01:22→23:55)
[2019-11-17] MEDS: dilTIAZem Drip 125 MG/125 ML PREMIX IV SCH ×2 (03:06→11:33)
[2019-11-17 05:18] LABS: ABG Base Excess -0.1 MMOL/L (-2.5-2.5); ABG HCO3 24.4 MMOL/L (20-26); ABG Oxygen Saturation 99.8 % (95-100); ABG PCO2 36.1 MM HG (35-48); ABG PH 7.429 (7.35-7.45); ABG TCO2 21.2 MMOL/L (23-27); Allen Test Positive; Pt O2 Delivery Device Ventilator
[2019-11-17 06:03] LABS: Basophils % 0.4 % (0.0-0.8); Eosinophils # 0.1 10*3/uL (0.0-0.87); Eosinophils % 0.4 % (0.00-10.9); Immature Granulocytes % 3.4 %; Immature Granulocytes Absolute 0.39 #; Lymphocytes # 0.6 10*3/uL (1.4-4.0); Lymphocytes % 5.6 % (21.3-54.2); Mean Corpuscular HGB Conc 32.3 GM/DL (32-36); Mean Corpuscular Volume 93.1 FL (87-102); Mean Platelet Volume 11.9 FL (9.6-12.0); Monocytes % 4.1 % (1.7-12.7); Neutrophils % 86.1 % (38.7-73.9); Platelet Count 126 T/CUMM (130-400); Red Blood Count 3.33 MC/CUMM (3.8-5.5); Red Cell Distribution Width 18.4 % (9.3-17.3); White Blood Count 11.4 T/CUMM (4-12)
[2019-11-17 06:23] LABS: Calcium 8.5 MG/DL (8.5-10.1); Osmolality,Calculated 289.2 MOS/KG (273-304)
[2019-11-17] MEDS: LEVOTHYROXINE 50 MCG TABLET PO SCH (08:09)
[2019-11-17] MEDS: ISOSORBIDE DINITRATE 10 MG TABLET PO SCH ×3 (08:09→20:37)
[2019-11-17] MEDS: AMIODARONE 200 MG TABLET PO SCH (08:10)
[2019-11-17] MEDS: PANTOPRAZOLE 40 MG VIAL IV SCH ×2 (08:10→20:37)
[2019-11-17] MEDS: POLYETHYLENE GLYCOL POWDER 17 GM PACK PO SCH (08:10)
[2019-11-17] MEDS: ASPIRIN CHEW 81 MG TABLET PO SCH (08:10)
[2019-11-17] MEDS: FERROUS SULFATE 325 MG TABLET PO SCH ×2 (08:10→20:37)
[2019-11-17] MEDS: METOPROLOL TARTRATE 25 MG TABLET PO SCH ×2 (08:12→20:37)
[2019-11-17] MEDS: ASCORBIC ACID 500 MG TABLET PO SCH ×3 (08:43→20:37)
[2019-11-17] MEDS: ATORVASTATIN 40 MG TABLET PO SCH (20:37)
[2019-11-18] MEDS: NOREPINEPHRINE 8 MG in SODIUM CHLORIDE 0.9% 242 ML IV PRN ×2 (00:56→14:35)
[2019-11-18] MEDS: DEXTROSE 5% NACL 0.45% 1,000 ML IV SCH ×2 (00:58→05:41)
[2019-11-18] MEDS: INSULIN REGULAR 100 UNIT/ML SUBCUT SCH ×4 (00:58→18:24)
[2019-11-18 04:38] LABS: ABG Base Excess -2.1 MMOL/L (-2.5-2.5); ABG HCO3 22.7 MMOL/L (20-26); ABG Oxygen Saturation 99.2 % (95-100); ABG PCO2 35.9 MM HG (35-48); ABG TCO2 20.1 MMOL/L (23-27); Allen Test Positive; Pt O2 Delivery Device Ventilator
[2019-11-18 04:51] LABS: Basophils # 0.1 10*3/uL (0.0-0.2); Basophils % 0.7 % (0.0-0.8); Eosinophils # 0.1 10*3/uL (0.0-0.87); Eosinophils % 0.7 % (0.00-10.9); Hematocrit 32.9 VOL% (35.7-47.0); Hemoglobin 10.9 GM/DL (12.0-16.0); Immature Granulocytes % 4.5 %; Lymphocytes % 7.4 % (21.3-54.2); Mean Corpuscular HGB Conc 33.1 GM/DL (32-36); Mean Corpuscular Volume 91.4 FL (87-102); Mean Platelet Volume 12.4 FL (9.6-12.0); Monocytes % 4.4 % (1.7-12.7); Neutrophils % 82.3 % (38.7-73.9); Platelet Count 151 T/CUMM (130-400); Red Cell Distribution Width 18.1 % (9.3-17.3); White Blood Count 13.4 T/CUMM (4-12)
[2019-11-18 04:57] LABS: Calcium 9.1 MG/DL (8.5-10.1); Osmolality,Calculated 289.4 MOS/KG (273-304)
[2019-11-18] MEDS: dilTIAZem Drip 125 MG/125 ML PREMIX IV SCH ×2 (05:06→11:57)
[2019-11-18 05:15] LABS: Band Neutrophils 2 % (0-10); Hypochromasia 1+; Lymphocytes 11 % (20-55); Platelet Estimate Adequate; Segmented Neutrophils 86 % (50-85); Total Cells Counted 100
[2019-11-18] MEDS: METOCLOPRAMIDE 10 MG/2 ML VIAL IV SCH ×3 (05:33→18:25)
[2019-11-18] MEDS: LEVOTHYROXINE 50 MCG TABLET PO SCH (08:24)
[2019-11-18] MEDS: FERROUS SULFATE 325 MG TABLET PO SCH ×2 (08:24→20:16)
[2019-11-18] MEDS: ASCORBIC ACID 500 MG TABLET PO SCH ×2 (08:24→20:16)
[2019-11-18] MEDS: AMIODARONE 200 MG TABLET PO SCH (08:24)
[2019-11-18] MEDS: ASPIRIN CHEW 81 MG TABLET PO SCH (08:24)
[2019-11-18] MEDS: POLYETHYLENE GLYCOL POWDER 17 GM PACK PO SCH (08:25)
[2019-11-18] MEDS: MENTHOL/ZINC OXIDE OINT 71 GM JAR TOP SCH ×2 (08:25→20:16)
[2019-11-18] MEDS: METOPROLOL TARTRATE 25 MG TABLET PO SCH (08:25)
[2019-11-18] MEDS: PANTOPRAZOLE 40 MG VIAL IV SCH ×2 (08:26→20:16)
[2019-11-18] MEDS: hydrALAZINE 25 MG TABLET PO SCH (08:26)
[2019-11-18] MEDS: ISOSORBIDE DINITRATE 10 MG TABLET PO SCH ×3 (08:28→20:16)
[2019-11-18] MEDS: MIDAZOLAM 100 MG in SODIUM CHLORIDE 0.9% 80 ML IV PRN (09:32)
[2019-11-18] MEDS ORDERED: DIGOXIN 0.5 MG/2 ML AMP IV ONE ×2 (10:46→13:00)
[2019-11-18] MEDS ORDERED: ALBUMIN 25% 25 GM in PREMIX 1 EACH IV SCH (11:00)
[2019-11-18] MEDS ORDERED: AMIODARONE INJ 150 MG in DEXTROSE 5% 100 ML IV ONE (11:03)
[2019-11-18] MEDS ORDERED: AMIODARONE INJ 450 MG in DEXTROSE 5% 241 ML IV SCH (11:30)
[2019-11-18] MEDS: AMIODARONE INJ 450 MG in DEXTROSE 5% 241 ML IV SCH (20:14)
[2019-11-18] MEDS: ATORVASTATIN 40 MG TABLET PO SCH (20:16)
[2019-11-19] MEDS: INSULIN REGULAR 100 UNIT/ML SUBCUT SCH ×4 (00:37→17:30)
[2019-11-19] MEDS: METOCLOPRAMIDE 10 MG/2 ML VIAL IV SCH ×5 (00:38→23:52)
[2019-11-19 03:33] LABS: Basophils # 0.1 10*3/uL (0.0-0.2); Basophils % 1.1 % (0.0-0.8); Eosinophils # 0.1 10*3/uL (0.0-0.87); Eosinophils % 0.5 % (0.00-10.9); Hematocrit 32.8 VOL% (35.7-47.0); Hemoglobin 10.1 GM/DL (12.0-16.0); Immature Granulocytes % 5.4 %; Immature Granulocytes Absolute 0.65 #; Lymphocytes # 1.1 10*3/uL (1.4-4.0); Lymphocytes % 9.5 % (21.3-54.2); Mean Corpuscular HGB Conc 30.8 GM/DL (32-36); Mean Corpuscular Volume 96.8 FL (87-102); Mean Platelet Volume 12.8 FL (9.6-12.0); Monocytes % 6.3 % (1.7-12.7); Neutrophils % 77.2 % (38.7-73.9); Platelet Count 98 T/CUMM (130-400); Red Blood Count 3.39 MC/CUMM (3.8-5.5); Red Cell Distribution Width 18.3 % (9.3-17.3)
[2019-11-19 03:37] LABS: ABG Base Excess 1.4 MMOL/L (-2.5-2.5); ABG HCO3 25.6 MMOL/L (20-26); ABG Oxygen Saturation 99.3 % (95-100); ABG PCO2 40.4 MM HG (35-48); ABG PH 7.416 (7.35-7.45); ABG TCO2 22.9 MMOL/L (23-27)
[2019-11-19 03:54] LABS: Calcium 8.9 MG/DL (8.5-10.1); Osmolality,Calculated 281.4 MOS/KG (273-304)
[2019-11-19 04:50] LABS: Band Neutrophils 1 % (0-10); Lymphocytes 4 % (20-55); Metamyelocytes 1 %; Myelocytes 2 %; Segmented Neutrophils 88 % (50-85); Total Cells Counted 100
[2019-11-19 04:51] LABS: Hypochromasia 1+
[2019-11-19 04:52] LABS: Anisocytosis 1+
[2019-11-19] MEDS: dilTIAZem Drip 125 MG/125 ML PREMIX IV SCH (07:12)
[2019-11-19] MEDS: ASPIRIN CHEW 81 MG TABLET PO SCH (08:27)
[2019-11-19] MEDS: ASCORBIC ACID 500 MG TABLET PO SCH ×2 (08:27→20:15)
[2019-11-19] MEDS: ISOSORBIDE DINITRATE 10 MG TABLET PO SCH ×3 (08:27→20:15)
[2019-11-19] MEDS: AMIODARONE 200 MG TABLET PO SCH ×2 (08:27→20:15)
[2019-11-19] MEDS: LEVOTHYROXINE 50 MCG TABLET PO SCH (08:27)
[2019-11-19] MEDS: FERROUS SULFATE 325 MG TABLET PO SCH ×2 (08:27→20:15)
[2019-11-19] MEDS: POLYETHYLENE GLYCOL POWDER 17 GM PACK PO SCH (08:27)
[2019-11-19] MEDS: MENTHOL/ZINC OXIDE OINT 71 GM JAR TOP SCH ×2 (08:27→20:15)
[2019-11-19] MEDS: PANTOPRAZOLE 40 MG VIAL IV SCH ×2 (08:30→20:15)
[2019-11-19] MEDS: AMIODARONE INJ 450 MG in DEXTROSE 5% 241 ML IV SCH (08:31)
[2019-11-19] MEDS: MIDAZOLAM 100 MG in SODIUM CHLORIDE 0.9% 80 ML IV PRN (18:01)
[2019-11-19] MEDS: ATORVASTATIN 40 MG TABLET PO SCH (20:15)
[2019-11-20] MEDS: dilTIAZem Drip 125 MG/125 ML PREMIX IV SCH ×3 (02:34→20:00)
[2019-11-20] MEDS ORDERED: METOPROLOL TARTRATE 5 MG/5 ML VIAL IV ONE (03:27)
[2019-11-20 03:40] LABS: ABG Base Excess -1.6 MMOL/L (-2.5-2.5); ABG HCO3 22.4 MMOL/L (20-26); ABG Oxygen Saturation 98.5 % (95-100); ABG PCO2 34.6 MM HG (35-48); ABG PO2 146.6 MM HG (80-95); ABG TCO2 23.5 MMOL/L (23-27)
[2019-11-20 05:28] LABS: Basophils % 0.3 % (0.0-0.8); Eosinophils # 0.1 10*3/uL (0.0-0.87); Eosinophils % 0.8 % (0.00-10.9); Hematocrit 22.4 VOL% (35.7-47.0); Hemoglobin 7.3 GM/DL (12.0-16.0); Immature Granulocytes % 2.9 %; Lymphocytes # 0.9 10*3/uL (1.4-4.0); Lymphocytes % 8.9 % (21.3-54.2); Mean Corpuscular HGB Conc 32.6 GM/DL (32-36); Mean Corpuscular Volume 92.6 FL (87-102); Mean Platelet Volume 12.5 FL (9.6-12.0); Monocytes % 5.1 % (1.7-12.7); Platelet Count 104 T/CUMM (130-400); Red Blood Count 2.42 MC/CUMM (3.8-5.5); Red Cell Distribution Width 17.9 % (9.3-17.3); White Blood Count 10.4 T/CUMM (4-12)
[2019-11-20] MEDS: METOCLOPRAMIDE 10 MG/2 ML VIAL IV SCH ×3 (05:42→17:32)
[2019-11-20 05:45] LABS: Calcium 9.7 MG/DL (8.5-10.1)
[2019-11-20] MEDS: INSULIN REGULAR 100 UNIT/ML SUBCUT SCH ×4 (06:13→17:19)
[2019-11-20] MEDS: POTASSIUM CHLORIDE 20 MEQ/15 ML UDCUP PER TUBE PRN (06:39)
[2019-11-20] MEDS ORDERED: SODIUM CHLORIDE 0.9% 1,000 ML IV PRN (07:34)
[2019-11-20] MEDS: PANTOPRAZOLE 40 MG VIAL IV SCH ×2 (09:46→20:18)
[2019-11-20] MEDS: ASCORBIC ACID 500 MG TABLET PO SCH ×2 (09:47→20:18)
[2019-11-20] MEDS: POLYETHYLENE GLYCOL POWDER 17 GM PACK PO SCH (09:48)
[2019-11-20] MEDS: ISOSORBIDE DINITRATE 10 MG TABLET PO SCH ×3 (09:48→20:19)
[2019-11-20] MEDS: ASPIRIN CHEW 81 MG TABLET PO SCH (09:49)
[2019-11-20] MEDS: FERROUS SULFATE 325 MG TABLET PO SCH ×2 (09:49→20:19)
[2019-11-20] MEDS: AMIODARONE 200 MG TABLET PO SCH ×2 (09:50→20:19)
[2019-11-20] MEDS: MENTHOL/ZINC OXIDE OINT 71 GM JAR TOP SCH ×2 (09:50→20:18)
[2019-11-20] MEDS: LEVOTHYROXINE 50 MCG TABLET PO SCH (09:53)
[2019-11-20] MEDS: ATORVASTATIN 40 MG TABLET PO SCH (20:19)
[2019-11-21] MEDS: INSULIN REGULAR 100 UNIT/ML SUBCUT SCH ×4 (00:21→17:33)
[2019-11-21] MEDS: METOCLOPRAMIDE 10 MG/2 ML VIAL IV SCH ×4 (00:22→17:34)
[2019-11-21 04:57] LABS: Basophils % 0.3 % (0.0-0.8); Eosinophils # 0.1 10*3/uL (0.0-0.87); Eosinophils % 0.9 % (0.00-10.9); Hematocrit 21.9 VOL% (35.7-47.0); Hemoglobin 7.3 GM/DL (12.0-16.0); Immature Granulocytes % 4.5 %; Immature Granulocytes Absolute 0.44 #; Lymphocytes # 0.8 10*3/uL (1.4-4.0); Lymphocytes % 8.4 % (21.3-54.2); Mean Corpuscular HGB Conc 33.3 GM/DL (32-36); Mean Platelet Volume 12.7 FL (9.6-12.0); Monocytes % 5.3 % (1.7-12.7); Neutrophils % 80.6 % (38.7-73.9); Platelet Count 94 T/CUMM (130-400); Red Blood Count 2.46 MC/CUMM (3.8-5.5); Red Cell Distribution Width 18.5 % (9.3-17.3); White Blood Count 9.8 T/CUMM (4-12)
[2019-11-21 05:05] LABS: Calcium 8.8 MG/DL (8.5-10.1); Osmolality,Calculated 292.7 MOS/KG (273-304)
[2019-11-21 05:35] LABS: ABG Base Excess 3.1 MMOL/L (-2.5-2.5); ABG HCO3 27.2 MMOL/L (20-26); ABG Oxygen Saturation 99.5 % (95-100); ABG PH 7.475 (7.35-7.45); ABG TCO2 23.1 MMOL/L (23-27); Allen Test Positive; Pt O2 Delivery Device Ventilator
[2019-11-21 05:36] LABS: Hypochromasia Slight; Microcytosis 1+
[2019-11-21 05:37] LABS: Anisocytosis 1+; Platelet Estimate Decreased
[2019-11-21] MEDS: PANTOPRAZOLE 40 MG VIAL IV SCH ×2 (08:23→21:12)
[2019-11-21] MEDS: dilTIAZem Drip 125 MG/125 ML PREMIX IV SCH (11:08)
[2019-11-21] MEDS: ISOSORBIDE DINITRATE 10 MG TABLET PO SCH ×3 (11:31→21:13)
[2019-11-21] MEDS: MENTHOL/ZINC OXIDE OINT 71 GM JAR TOP SCH ×2 (11:31→21:58)
[2019-11-21] MEDS: POLYETHYLENE GLYCOL POWDER 17 GM PACK PO SCH (11:32)
[2019-11-21] MEDS: AMIODARONE 200 MG TABLET PO SCH ×2 (11:48→21:13)
[2019-11-21] MEDS: METOPROLOL TARTRATE 25 MG TABLET PO SCH ×2 (11:48→21:13)
[2019-11-21] MEDS ORDERED: PHENYLEPHRINE 1 MG/10 ML SYRINGE IV ONE (11:51)
[2019-11-21] MEDS ORDERED: MIDAZOLAM 10 MG/2 ML VIAL ONE (11:51)
[2019-11-21] MEDS ORDERED: VECURONIUM 10 MG VIAL IV ONE (11:51)
[2019-11-21 12:10] LABS: Basophils # 0.1 10*3/uL (0.0-0.2); Basophils % 0.5 % (0.0-0.8); Eosinophils # 0.1 10*3/uL (0.0-0.87); Eosinophils % 0.8 % (0.00-10.9); Hematocrit 22.2 VOL% (35.7-47.0); Hemoglobin 7.3 GM/DL (12.0-16.0); Immature Granulocytes % 4.6 %; Immature Granulocytes Absolute 0.48 #; Lymphocytes # 0.9 10*3/uL (1.4-4.0); Lymphocytes % 8.7 % (21.3-54.2); Mean Corpuscular HGB Conc 32.9 GM/DL (32-36); Mean Corpuscular Volume 89.5 FL (87-102); Mean Platelet Volume 12.7 FL (9.6-12.0); Monocytes % 6.7 % (1.7-12.7); Neutrophils % 78.7 % (38.7-73.9); Platelet Count 108 T/CUMM (130-400); Red Blood Count 2.48 MC/CUMM (3.8-5.5); Red Cell Distribution Width 18.6 % (9.3-17.3); White Blood Count 10.4 T/CUMM (4-12)
[2019-11-21 12:48] LABS: Folate 5.6 NG/ML (5.4-24.0); Vitamin B12 382 PG/ML (211-911)
[2019-11-21 13:08] LABS: Sedimentation Rate-Westergren 103 MM/HR (0-30)
[2019-11-21] MEDS ORDERED: ePHEDrine 50 MG/ML VIAL ONE (13:29)
[2019-11-21] MEDS: ASCORBIC ACID 500 MG TABLET PO SCH ×2 (13:38→21:12)
[2019-11-21] MEDS: LEVOTHYROXINE 50 MCG TABLET PO SCH (13:38)
[2019-11-21] MEDS: ASPIRIN CHEW 81 MG TABLET PO SCH (13:38)
[2019-11-21] MEDS: FERROUS SULFATE 325 MG TABLET PO SCH ×2 (13:38→21:13)
[2019-11-21] MEDS: ATORVASTATIN 40 MG TABLET PO SCH (21:13)
[2019-11-22] MEDS: METOCLOPRAMIDE 10 MG/2 ML VIAL IV SCH ×4 (00:58→17:50)
[2019-11-22] MEDS: INSULIN REGULAR 100 UNIT/ML SUBCUT SCH ×4 (00:59→17:50)
[2019-11-22] MEDS: dilTIAZem Drip 125 MG/125 ML PREMIX IV SCH (04:12)
[2019-11-22 04:57] LABS: ABG Base Excess 1.9 MMOL/L (-2.5-2.5); ABG HCO3 26.1 MMOL/L (20-26); ABG Oxygen Saturation 99.7 % (95-100); ABG PCO2 34.7 MM HG (35-48); ABG PH 7.473 (7.35-7.45); ABG TCO2 23.9 MMOL/L (23-27); Allen Test Positive; Pt O2 Delivery Device Ventilator
[2019-11-22 05:53] LABS: Basophils % 0.2 % (0.0-0.8); Eosinophils # 0.1 10*3/uL (0.0-0.87); Eosinophils % 0.6 % (0.00-10.9); Hematocrit 21.9 VOL% (35.7-47.0); Immature Granulocytes Absolute 0.38 #; Lymphocytes # 0.9 10*3/uL (1.4-4.0); Mean Corpuscular Volume 93.6 FL (87-102); Mean Platelet Volume 12.1 FL (9.6-12.0); Neutrophils % 83.2 % (38.7-73.9); Platelet Count 122 T/CUMM (130-400); Red Blood Count 2.34 MC/CUMM (3.8-5.5); Red Cell Distribution Width 18.7 % (9.3-17.3); White Blood Count 12.7 T/CUMM (4-12)
[2019-11-22 06:04] LABS: Calcium 9.4 MG/DL (8.5-10.1)
[2019-11-22] MEDS: PANTOPRAZOLE 40 MG VIAL IV SCH ×2 (08:38→21:20)
[2019-11-22] MEDS: FERROUS SULFATE 325 MG TABLET PO SCH ×2 (08:38→21:27)
[2019-11-22] MEDS: ASCORBIC ACID 500 MG TABLET PO SCH ×2 (08:38→21:27)
[2019-11-22] MEDS: ISOSORBIDE DINITRATE 10 MG TABLET PO SCH ×3 (08:38→21:27)
[2019-11-22] MEDS: POLYETHYLENE GLYCOL POWDER 17 GM PACK PO SCH (08:39)
[2019-11-22] MEDS: MENTHOL/ZINC OXIDE OINT 71 GM JAR TOP SCH ×2 (08:39→21:25)
[2019-11-22] MEDS: AMIODARONE 200 MG TABLET PO SCH ×2 (08:39→21:27)
[2019-11-22] MEDS: ASPIRIN CHEW 81 MG TABLET PO SCH (08:39)
[2019-11-22] MEDS: LEVOTHYROXINE 50 MCG TABLET PO SCH (08:39)
[2019-11-22] MEDS: METOPROLOL TARTRATE 25 MG TABLET PO SCH (08:39)
[2019-11-22 08:57] LABS: Hemoglobin A1 (Alkaline) 97.2 % (96.5-98.5); Hemoglobin A2 (Alkaline) 2.8 % (1.5-3.5)
[2019-11-22] MEDS ORDERED: SODIUM CHLORIDE 0.9% 1,000 ML IV PRN (09:17)
[2019-11-22] MEDS: MORPHINE 4 MG/1 ML VIAL IV PRN ×2 (09:41→14:25)
[2019-11-22] MEDS: METOPROLOL TARTRATE 50 MG TABLET PO SCH (21:27)
[2019-11-22] MEDS: ATORVASTATIN 40 MG TABLET PO SCH (21:27)
[2019-11-23] MEDS: INSULIN REGULAR 100 UNIT/ML SUBCUT SCH ×4 (01:14→17:54)
[2019-11-23] MEDS: METOCLOPRAMIDE 10 MG/2 ML VIAL IV SCH ×4 (01:15→17:16)
[2019-11-23] MEDS: MORPHINE 4 MG/1 ML VIAL IV PRN ×3 (01:17→20:37)
[2019-11-23] MEDS: dilTIAZem Drip 125 MG/125 ML PREMIX IV SCH (02:04)
[2019-11-23 04:19] LABS: Allen Test Positive; Pt O2 Delivery Device Ventilator
[2019-11-23 04:21] LABS: ABG Base Excess 4.6 MMOL/L (-2.5-2.5); ABG HCO3 28.6 MMOL/L (20-26); ABG Oxygen Saturation 99.5 % (95-100); ABG PH 7.464 (7.35-7.45); ABG TCO2 26.5 MMOL/L (23-27)
[2019-11-23 05:53] LABS: Alanine Aminotransferase 67 U/L (13-56); Albumin 1.5 G/DL (3.4-5.0); Alkaline Phosphatase 178 U/L (45-117); Aspartate Amino Transferase 62 U/L (0-37); Bilirubin,Total < 0.39 MG/DL (0.2-1.0); Blood Urea Nitrogen 44 MG/DL (7-18); Calcium 8.5 MG/DL (8.5-10.1); Estimated Glom Filtration Rate 55 ML/MIN; Glucose 118 MG/DL (74-106); Osmolality,Calculated 284.8 MOS/KG (273-304); Total Protein 4.9 G/DL (6.4-8.3)
[2019-11-23 06:07] LABS: Basophils # 0.1 10*3/uL (0.0-0.2); Basophils % 0.4 % (0.0-0.8); Eosinophils # 0.1 10*3/uL (0.0-0.87); Eosinophils % 0.8 % (0.00-10.9); Hematocrit 26.4 VOL% (35.7-47.0); Hemoglobin 8.8 GM/DL (12.0-16.0); Immature Granulocytes % 2.4 %; Immature Granulocytes Absolute 0.29 #; Lymphocytes % 8.2 % (21.3-54.2); Mean Corpuscular HGB Conc 33.3 GM/DL (32-36); Mean Corpuscular Volume 92.6 FL (87-102); Mean Platelet Volume 12.6 FL (9.6-12.0); Monocytes % 6.5 % (1.7-12.7); Neutrophils % 81.7 % (38.7-73.9); Platelet Count 114 T/CUMM (130-400); Red Blood Count 2.85 MC/CUMM (3.8-5.5); Red Cell Distribution Width 17.2 % (9.3-17.3); White Blood Count 12.2 T/CUMM (4-12)
[2019-11-23] MEDS: FERROUS SULFATE 325 MG TABLET PO SCH ×2 (08:30→20:26)
[2019-11-23] MEDS: ASPIRIN CHEW 81 MG TABLET PO SCH (08:30)
[2019-11-23] MEDS: PANTOPRAZOLE 40 MG VIAL IV SCH ×2 (08:30→20:35)
[2019-11-23] MEDS: LEVOTHYROXINE 50 MCG TABLET PO SCH (08:30)
[2019-11-23] MEDS: POLYETHYLENE GLYCOL POWDER 17 GM PACK PO SCH (08:30)
[2019-11-23] MEDS: AMIODARONE 200 MG TABLET PO SCH ×2 (08:30→20:26)
[2019-11-23] MEDS: METOPROLOL TARTRATE 50 MG TABLET PO SCH ×2 (08:31→23:17)
[2019-11-23] MEDS: ASCORBIC ACID 500 MG TABLET PO SCH ×2 (08:31→20:26)
[2019-11-23] MEDS: ISOSORBIDE DINITRATE 10 MG TABLET PO SCH ×3 (08:31→20:26)
[2019-11-23] MEDS: MENTHOL/ZINC OXIDE OINT 71 GM JAR TOP SCH ×2 (08:53→20:40)
[2019-11-23] MEDS ORDERED: SODIUM CHLORIDE 0.9% 1,000 ML IV PRN (13:21)
[2019-11-23] MEDS: ATORVASTATIN 40 MG TABLET PO SCH (20:26)
[2019-11-24] MEDS: INSULIN REGULAR 100 UNIT/ML SUBCUT SCH ×4 (00:59→18:40)
[2019-11-24] MEDS: dilTIAZem Drip 125 MG/125 ML PREMIX IV SCH (01:00)
[2019-11-24] MEDS: METOCLOPRAMIDE 10 MG/2 ML VIAL IV SCH ×4 (01:06→18:40)
[2019-11-24 03:04] LABS: Allen Test Positive; Pt O2 Delivery Device Ventilator
[2019-11-24 03:05] LABS: ABG Base Excess 2.5 MMOL/L (-2.5-2.5); ABG Oxygen Saturation 98.1 % (95-100); ABG PCO2 41.1 MM HG (35-48); ABG PH 7.435 (7.35-7.45); ABG PO2 120.5 MM HG (80-95); ABG TCO2 28.2 MMOL/L (23-27)
[2019-11-24 05:19] LABS: Basophils # 0.1 10*3/uL (0.0-0.2); Basophils % 0.4 % (0.0-0.8); Eosinophils # 0.2 10*3/uL (0.0-0.87); Eosinophils % 1.2 % (0.00-10.9); Hematocrit 25.1 VOL% (35.7-47.0); Immature Granulocytes % 2.2 %; Immature Granulocytes Absolute 0.31 #; Lymphocytes % 6.8 % (21.3-54.2); Mean Corpuscular HGB Conc 31.9 GM/DL (32-36); Mean Corpuscular Volume 95.1 FL (87-102); Mean Platelet Volume 12.2 FL (9.6-12.0); Monocytes % 6.9 % (1.7-12.7); Neutrophils % 82.5 % (38.7-73.9); Platelet Count 132 T/CUMM (130-400); Red Blood Count 2.64 MC/CUMM (3.8-5.5); Red Cell Distribution Width 17.1 % (9.3-17.3); White Blood Count 14.1 T/CUMM (4-12)
[2019-11-24 05:24] LABS: Calcium 9.2 MG/DL (8.5-10.1)
[2019-11-24 05:37] LABS: INR 1.1; PT Patient Result 11.6 SECS (9.8-11.9); Partial Thromboplastin Time 32.5 SECS (23.9-33.8)
[2019-11-24 06:17] VITALS: BP 115/59
[2019-11-24] MEDS: METOPROLOL TARTRATE 50 MG TABLET PO SCH ×2 (08:18→23:20)
[2019-11-24] MEDS: ASPIRIN CHEW 81 MG TABLET PO SCH (08:18)
[2019-11-24] MEDS: ISOSORBIDE DINITRATE 10 MG TABLET PO SCH ×3 (08:18→21:16)
[2019-11-24] MEDS: LEVOTHYROXINE 50 MCG TABLET PO SCH (08:18)
[2019-11-24] MEDS: FERROUS SULFATE 325 MG TABLET PO SCH ×2 (08:18→21:16)
[2019-11-24] MEDS: AMIODARONE 200 MG TABLET PO SCH ×2 (08:18→21:16)
[2019-11-24] MEDS: MENTHOL/ZINC OXIDE OINT 71 GM JAR TOP SCH ×2 (08:19→21:16)
[2019-11-24] MEDS: POLYETHYLENE GLYCOL POWDER 17 GM PACK PO SCH (08:19)
[2019-11-24] MEDS: ASCORBIC ACID 500 MG TABLET PO SCH ×2 (08:20→21:16)
[2019-11-24] MEDS: PANTOPRAZOLE 40 MG VIAL IV SCH ×2 (08:24→21:02)
[2019-11-24] MEDS: MORPHINE 4 MG/1 ML VIAL IV PRN ×2 (09:00→16:32)
[2019-11-24] MEDS: ATORVASTATIN 40 MG TABLET PO SCH (21:16)
[2019-11-25] MEDS: MORPHINE 4 MG/1 ML VIAL IV PRN ×2 (00:05→06:20)
[2019-11-25] MEDS: INSULIN REGULAR 100 UNIT/ML SUBCUT SCH ×3 (00:16→12:45)
[2019-11-25] MEDS: METOCLOPRAMIDE 10 MG/2 ML VIAL IV SCH ×3 (00:16→12:24)
[2019-11-25] MEDS: dilTIAZem Drip 125 MG/125 ML PREMIX IV SCH (01:08)
[2019-11-25 03:09] LABS: ABG HCO3 26.8 MMOL/L (20-26); ABG Oxygen Saturation 97.6 % (95-100); ABG PCO2 48.5 MM HG (35-48); ABG PO2 108.8 MM HG (80-95); ABG TCO2 28.3 MMOL/L (23-27); Allen Test Positive; Pt O2 Delivery Device Ventilator
[2019-11-25 05:21] LABS: Basophils # 0.1 10*3/uL (0.0-0.2); Basophils % 0.4 % (0.0-0.8); Eosinophils # 0.2 10*3/uL (0.0-0.87); Eosinophils % 1.8 % (0.00-10.9); Hematocrit 27.3 VOL% (35.7-47.0); Hemoglobin 8.7 GM/DL (12.0-16.0); Immature Granulocytes % 2.7 %; Immature Granulocytes Absolute 0.35 #; Lymphocytes # 0.8 10*3/uL (1.4-4.0); Lymphocytes % 5.9 % (21.3-54.2); Mean Corpuscular HGB Conc 31.9 GM/DL (32-36); Mean Corpuscular Volume 93.5 FL (87-102); Mean Platelet Volume 11.9 FL (9.6-12.0); Monocytes % 6.6 % (1.7-12.7); Neutrophils % 82.6 % (38.7-73.9); Red Blood Count 2.92 MC/CUMM (3.8-5.5); Red Cell Distribution Width 16.8 % (9.3-17.3); White Blood Count 12.9 T/CUMM (4-12)
[2019-11-25 05:22] LABS: Platelet Count 180 T/CUMM (130-400)
[2019-11-25 05:38] LABS: Calcium 9.3 MG/DL (8.5-10.1)
[2019-11-25 05:41] LABS: Hypochromasia 1+; Platelet Estimate Adequate
[2019-11-25] MEDS: PANTOPRAZOLE 40 MG VIAL IV SCH (08:48)
[2019-11-25] MEDS: ISOSORBIDE DINITRATE 10 MG TABLET PO SCH ×2 (08:49→15:37)
[2019-11-25] MEDS: ASPIRIN CHEW 81 MG TABLET PO SCH (08:49)
[2019-11-25] MEDS: ASCORBIC ACID 500 MG TABLET PO SCH (08:49)
[2019-11-25] MEDS: AMIODARONE 200 MG TABLET PO SCH (08:49)
[2019-11-25] MEDS: FERROUS SULFATE 325 MG TABLET PO SCH (08:49)
[2019-11-25] MEDS: POLYETHYLENE GLYCOL POWDER 17 GM PACK PO SCH (08:50)
[2019-11-25] MEDS: LEVOTHYROXINE 50 MCG TABLET PO SCH (08:50)
[2019-11-25] MEDS: METOPROLOL TARTRATE 50 MG TABLET PO SCH (08:50)
[2019-11-25] MEDS: MENTHOL/ZINC OXIDE OINT 71 GM JAR TOP SCH (08:50)
== END 2019-11-25 17:16 | DRG 4 ==
LOC: N.ED 10:53 → N.EDINP 14:19 → SUATTDRO 14:19 → N.2E 15:58 → N.CC 10-29 08:40
PROVIDERS: ADMIT Hospitalist; ATTEND Internal Medicine